=== PATIENT | female | born 1985 | race Caucasian/White ===

== ENCOUNTER 2016-11-25 16:13 | Emergency (ER) | payer OTHER ==
[~2016-11-25] VITALS: Ht 162.6 cm; Wt 108.0 kg
[~2016-11-25 16:13] MED LIST: ACET-1311 PO; IBUP1CAP9 PO
[2016-11-25 16:21] VITALS: TEMP 37.2; Ht 162.6 cm; Wt 108.0 kg
[2016-11-25] MEDS ORDERED: ONDANSETRON INJ 2 MG/ML 2 ML VIAL IV STA (16:36)
[2016-11-25] MEDS ORDERED: SODIUM CHLORIDE 0.9% 1000ML 1,000 ML IV STA (16:36)
--- NOTE | 2016-11-25 16:57 | DIAGNOSTIC IMAGING REPORT ---
CHEST ONE VIEW PORTABLE CLINICAL HISTORY: Abdominal pain. COMPARISON STUDY: Chest radiograph May 20, 2013. FINDINGS: Kyphotic positioning is noted on this exam. Lung volumes are at the lower limits of normal. No consolidation is identified. There is no pneumothorax or pleural effusion. An atrial septal defect occluder is better depicted on prior exam due to differences in technique. IMPRESSION: No acute cardiopulmonary findings. Electronically signed by: Roland Roberts M.D. 11/25/2016 4:56 PM Dictated Date/Time: 11/25/2016 4:55 PM
[2016-11-25 17:06] LABS: BASO % 0.3 %; BASO ABS # 0.03 K/uL (0-0.2); COMPLETE YES; EOS % 3.2 %; IG% 0.3 %; LYMPH ABS # 2.71 K/uL (1.2-3.4); MEAN CELL VOLUME 90.1 fL (80-100); MEAN CORPUSCULAR HEMOGLOBIN 31.1 pg (25-34); MEAN CORPUSCULAR HGB CONC 34.5 g/dl (32-36); MEAN PLATELET VOLUME 9.7 fL (7.4-10.4); MONO % 8.6 %; NEUT % 56.6 %; PLATELET COUNT 223 K/uL (130-400); RED BLOOD COUNT 4.66 M/uL (4.2-5.4); WHITE BLOOD COUNT 8.75 K/uL (4.8-10.8)
[2016-11-25 17:15] LABS: URINE APPEARANCE CLEAR (CLEAR); URINE BILIRUBIN NEG (NEG); URINE COLOR YELLOW; URINE EPITHELIAL CELL AUTO >30 /lpf (0-5); URINE NITRITE NEG (NEG); UROBILINOGEN NEG (NEG); ZZUR CULT IF INDIC CLEAN CATCH NO
[2016-11-25 17:18] LABS: MANUAL MICROSCOPIC REQUIRED? NO; REVIEW REQ? NO
[2016-11-25 17:19] LABS: INR 0.9 (0.9-1.1); PROTHROMBIN TIME (PATIENT) 9.5 SECONDS (9.0-12.0)
[2016-11-25 17:26] LABS: ALKALINE PHOSPHATASE 39 U/L (45-117); ALT/SGPT 19 U/L (12-78); BLOOD UREA NITROGEN 9 mg/dl (7-18); CALCIUM 8.4 mg/dl (8.5-10.1); CARBON DIOXIDE 26 mmol/L (21-32); CHLORIDE 111 mmol/L (98-107); GLUCOSE 117 mg/dl (70-99)
--- NOTE | 2016-11-25 17:26 | DIAGNOSTIC IMAGING REPORT ---
CT OF THE ABDOMEN AND PELVIS WITHOUT CONTRAST, STONE PROTOCOL CLINICAL HISTORY: Right upper quadrant abdominal pain. COMPARISON STUDY: CT of the abdomen and pelvis April 08, 2010. TECHNIQUE: Helical axial images of the abdomen and pelvis were obtained without IV or oral contrast according to renal stone protocol. FINDINGS: Mild mosaic attenuation is noted within visualized portions of the lower lungs. An atrial septal defect occluder is noted. No pneumatosis, free air or portal venous gas is present. There is no biliary ductal dilatation status post cholecystectomy. No renal, ureteral or bladder calculi are present. Evaluation of the remainder of the abdomen and pelvis is suboptimal on this unenhanced exam. Unenhanced images of the liver, spleen, adrenal glands and pancreas are normal. There is a small fat-containing umbilical hernia. The ovaries are not enlarged. There is no ascites or lymphadenopathy. No significant skeletal abnormalities are present. IMPRESSION: 1. No urinary calculi or hydronephrosis. 2. No evidence of acute appendicitis. 3. No acute process within the abdomen or pelvis on unenhanced study. Electronically signed by: Roland Roberts M.D. 11/25/2016 5:25 PM Dictated Date/Time: 11/25/2016 5:19 PM
[2016-11-25 17:36] LABS: AST/SGOT 13 U/L (15-37); BUN/CREATININE RATIO 11.3 (10-20); POTASSIUM 3.9 mmol/L (3.5-5.1); SODIUM 144 mmol/L (136-145)
[2016-11-25 18:02] VITALS: BP 150/89; PULSE 78; O2SAT 97
--- NOTE | 2016-11-25 18:05 | EMERGENCY ROOM VISIT NOTE ---
History Report prepared by Petrona: Raine Ruiz Under the Supervision of: Dr. Og Montana D.O. First contact with patient: 16:17 Chief Complaint: ABDOMINAL PAIN Stated Complaint: LOWER ABD PAIN History of Present Illness The patient is a 31 year old female who presents to the Emergency Room with complaints of constant RUQ abdominal pain for the past 36 hours. The patient states that she has had 5 episodes of similar pain over the past month. Typically her pain lasts for anywhere from 12 hours to 2 days. She describes her pain as dull and achy with occasional sharp pains. She rates her pain as a 5 /10 in severity. She reports nausea when her pain is sharp. The patient denies constipation, diarrhea, vomiting, fever, back pain, and urinary symptoms. Food does not exacerbate her pain; although movement does. Patient has a history of a cholecystectomy. Her LNMP was 2 weeks ago. She has never been evaluated for these symptoms in the past. Source of History: patient Onset: 36 hours ago Position: abdomen (RUQ) Symptom Intensity: 5/10 Quality: ache, sharp, dull Timing: constant Modifying Factors (Worsening): movement Associated Symptoms: + nausea, No back pain, No diarrhea, No fevers, No urinary symptoms, No vomiting Note: Pt also denies constipation. Review of Systems See HPI for pertinent positives & negatives. A total of 10 systems reviewed and were otherwise negative. Past Medical & Surgical Medical Problems: (1) Asthma, Unspecified Surgical Problems: (1) H/O tubal ligation (2) H/O wisdom tooth extraction (3) History of atrial septal defect repair (4) History of cholecystectomy Family History Heart disease Hypertension Kidney disease Kidney stones Social History Smoking Status: Never Smoker Alcohol Use: none Drug Use: none Housing Status: lives with family Occupation Status: employed Current/Historical Medications Scheduled PRN Albuterol Sulfate (Proair Respiclick), 2 PUFFS INH Q4 PRN for SOB/Wheezing Allergies Coded Allergies: Penicillins (Verified Allergy, Unknown, AMOXIL, 11/25/16) Uncoded Allergies: ENVIRONMENTAL (Allergy, Intermediate, ., 05/19/16) Physical Exam Vital Signs Date Time Temp Pulse Resp B/P Pulse Ox O2 Delivery O2 Flow Rate FiO2 11/25/16 18:02 78 16 150/89 97 Room Air 11/25/16 16:21 37.2 89 20 145/79 96 Room Air Physical Exam CONSTITUTIONAL/VITAL SIGNS: Reviewed / noted above. GENERAL: Non-toxic in appearance. INTEGUMENTARY: Warm, dry, and [place]. HEAD: Normocephalic. EYES: without scleral icterus or trauma. ENT/OROPHARYNX: clear and moist. LYMPHADENOPATHY/NECK: Is supple without lymphadenopathy or meningismus. RESPIRATORY: Lungs clear and equal. CARDIOVASCULAR: Regular rate and rhythm. GI/ABDOMEN: Soft and tender in RUQ. No organomegaly or pulsatile mass. No rebound or guarding. Normal bowel sounds. EXTREMITIES: Warm and well perfused. BACK: No CVA tenderness. NEUROLOGICAL: Intact without focal deficits. PSYCHIATRIC: normal affect. MUSCULOSKELETAL: Normally developed with good muscle tone. Medical Decision & Procedures ER Provider Diagnostic Interpretation: Radiology results as stated below per my review and radiologist interpretation: CT OF THE ABDOMEN AND PELVIS WITHOUT CONTRAST, STONE PROTOCOL CLINICAL HISTORY: Right upper quadrant abdominal pain. COMPARISON STUDY: CT of the abdomen and pelvis April 08, 2010. TECHNIQUE: Helical axial images of the abdomen and pelvis were obtained without IV or oral contrast according to renal stone protocol. FINDINGS: Mild mosaic attenuation is noted within visualized portions of the lower lungs. An atrial septal defect occluder is noted. No pneumatosis, free air or portal venous gas is present. There is no biliary ductal dilatation status post cholecystectomy. No renal, ureteral or bladder calculi are present. Evaluation of the remainder of the abdomen and pelvis is suboptimal on this unenhanced exam. Unenhanced images of the liver, spleen, adrenal glands and pancreas are normal. There is a small fat-containing umbilical hernia. The ovaries are not enlarged. There is no ascites or lymphadenopathy. No significant skeletal abnormalities are present. IMPRESSION: 1. No urinary calculi or hydronephrosis. 2. No evidence of acute appendicitis. 3. No acute process within the abdomen or pelvis on unenhanced study. Electronically signed by: Roland Roberts M.D. 11/25/2016 5:25 PM Dictated Date/Time: 11/25/2016 5:19 PM CHEST ONE VIEW PORTABLE CLINICAL HISTORY: Abdominal pain. COMPARISON STUDY: Chest radiograph May 20, 2013. FINDINGS: Kyphotic positioning is noted on this exam. Lung volumes are at the lower limits of normal. No consolidation is identified. There is no pneumothorax or pleural effusion. An atrial septal defect occluder is better depicted on prior exam due to differences in technique. IMPRESSION: No acute cardiopulmonary findings. Electronically signed by: Roland Roberts M.D. 11/25/2016 4:56 PM Dictated Date/Time: 11/25/2016 4:55 PM Laboratory Results 11/25/16 16:55 Red Blood Count 4.66, Mean Corpuscular Volume 90.1, Mean Corpuscular Hemoglobin 31.1, Mean Corpuscular Hemoglobin Concent 34.5, Mean Platelet Volume 9.7, Neutrophils (%) (Auto) 56.6, Lymphocytes (%) (Auto) 31.0, Monocytes (%) (Auto) 8.6, Eosinophils (%) (Auto) 3.2, Basophils (%) (Auto) 0.3, Neutrophils # (Auto) 4.95, Lymphocytes # (Auto) 2.71, Monocytes # (Auto) 0.75, Eosinophils # (Auto) 0.28, Basophils # (Auto) 0.03 11/25/16 16:55 Test 11/25/16 16:55 11/25/16 17:00 White Blood Count 8.75 K/uL (4.8-10.8) Red Blood Count 4.66 M/uL (4.2-5.4) Hemoglobin 14.5 g/dL (12.0-16.0) Hematocrit 42.0 % (37-47) Mean Corpuscular Volume 90.1 fL (80-100) Mean Corpuscular Hemoglobin 31.1 pg (25-34) Mean Corpuscular Hemoglobin Concent 34.5 g/dl (32-36) Platelet Count 223 K/uL (130-400) Mean Platelet Volume 9.7 fL (7.4-10.4) Neutrophils (%) (Auto) 56.6 % Lymphocytes (%) (Auto) 31.0 % Monocytes (%) (Auto) 8.6 % Eosinophils (%) (Auto) 3.2 % Basophils (%) (Auto) 0.3 % Neutrophils # (Auto) 4.95 K/uL (1.4-6.5) Lymphocytes # (Auto) 2.71 K/uL (1.2-3.4) Monocytes # (Auto) 0.75 K/uL (0.11-0.59) Eosinophils # (Auto) 0.28 K/uL (0-0.5) Basophils # (Auto) 0.03 K/uL (0-0.2) RDW Standard Deviation 42.2 fL (36.4-46.3) RDW Coefficient of Variation 13.0 % (11.5-14.5) Immature Granulocyte % (Auto) 0.3 % Immature Granulocyte # (Auto) 0.03 K/uL (0.00-0.02) Prothrombin Time 9.5 SECONDS (9.0-12.0) Prothromb Time International Ratio 0.9 (0.9-1.1) Activated Partial Thromboplast Time 25.0 SECONDS (21.0-31.0) Partial Thromboplastin Ratio 1.0 Anion Gap 7.0 mmol/L (3-11) Est Creatinine Clear Calc Drug Dose 123.4 ml/min Estimated GFR () 114.7 Estimated GFR (Non- 98.9 BUN/Creatinine Ratio 11.3 (10-20) Calcium Level 8.4 mg/dl (8.5-10.1) Total Bilirubin 0.1 mg/dl (0.2-1) Direct Bilirubin < 0.1 mg/dl (0-0.2) Aspartate Amino Transf (AST/SGOT) 13 U/L (15-37) Alanine Aminotransferase (ALT/SGPT) 19 U/L (12-78) Alkaline Phosphatase 39 U/L (45-117) Total Protein 6.9 gm/dl (6.4-8.2) Albumin 3.5 gm/dl (3.4-5.0) Lipase 125 U/L (73-393) Urine Color YELLOW Urine Appearance CLEAR (CLEAR) Urine pH 7.0 (4.5-7.5) Urine Specific [place] 1.020 (1.000-1.030) Urine Protein NEG (NEG) Urine Glucose (UA) NEG (NEG) Urine Ketones NEG (NEG) Urine Occult Blood NEG (NEG) Urine Nitrite NEG (NEG) Urine Bilirubin NEG (NEG) Urine Urobilinogen NEG (NEG) Urine Leukocyte Esterase TRACE (NEG) Urine WBC (Auto) 1-5 /hpf (0-5) Urine RBC (Auto) 5-10 /hpf (0-4) Urine Hyaline Casts (Auto) 1-5 /lpf (0-5) Urine Epithelial Cells (Auto) >30 /lpf (0-5) Urine Bacteria (Auto) NEG (NEG) Urine Test NEG (NEG) Laboratory results as stated above per my review. Medications Administered Medications (Trade) Dose Ordered Sig/Cammie Route Start Time Stop Time Status Last Admin Dose Admin Sodium Chloride (Nss 1000ml) 1,000 ml @ 999 mls/hr Q1H1M STAT IV 11/25/16 16:36 11/25/16 17:36 DC 11/25/16 16:36 999 MLS/HR Ondansetron HCl (Zofran Inj) 4 mg NOW STAT IV 11/25/16 16:36 11/25/16 16:38 DC 11/25/16 16:57 4 MG ED Course 1628: Previous medical records were reviewed. The patient was evaluated in room B4B. A complete history and physical examination was performed. 1636: NSS 1000 ml @ 999 mls/hr IV, Zofran 4 mg IV. 1805:I reassessed the patient at this time. She is feeling better and resting comfortably. I discussed the results and treatment plan with the patient. I answered all pertaining questions that she had. She expressed understanding and verbalized agreement. The patient will be discharged home. Medical Decision Differential considered: pancreatitis, hepatitis, AAA, UTI, pyelonephritis, kidney stones, appendicitis, diverticulitis, shingles, bowel obstruction mesenteric ischemia, intussusception,hernia, ovarian torsion, ruptured ovarian cyst,ectopic , . This is a 31-year-old female who presents to the ED with a chief complaint of right upper quadrant abdominal pain. The patient states that she has had the pain for about 36 hours. She describes as a dull achy pain with occasional sharp pains associated with it. This causes some nausea. The patient states that she has had similar pains in the past month. The initial event was the worse one and lasted for about 12-24 hours. She has had about 4 additional times that lasted for brief periods less than 24 hours. She has not had it evaluated in the past. Her last muscle. Was 2 weeks ago. She denies any changes in her bowels or bladder. Her urinary symptoms. Nothing seems to make it worse other than occasionally certain movements with sitting. She denies any association to food. She does report history of cholecystectomy and tubal ligation the past. Her vital signs are stable. Her physical exam was positive for some tenderness in the right upper quadrant. CBC is normal. Chest x-ray was negative for acute disease. test is negative. Chemistry panel was unremarkable. Lipase is negative. A CT scan of the abdomen pelvis did not show any acute process. The patient was told results per cheese felt to be stable for discharge. She was treated with IV fluids and IV Zofran. Impression Primary Impression: Right upper quadrant abdominal pain Scribe Attestation The scribe's documentation has been prepared under my direction and personally reviewed by me in its entirety. I confirm that the note above accurately reflects all work, treatment, procedures, and medical decision making performed by me. Departure Information Dispostion Home / Self-Care Referrals No Doctor, Assigned (PCP) Forms Call Back Authorization, HOME CARE DOCUMENTATION FORM, IMPORTANT VISIT INFORMATION Patient Instructions Abdominal Pain, My [facility] Additional Instructions Follow-up with your doctor for further care and evaluation in 1-2 days. Return to the emergency department for worsening or new symptoms or any concerns. You have been examined and treated today on an emergency basis only. This is not a substitute for, or an effort to provide, complete comprehensive medical care. It is impossible to recognize and treat all injuries or illnesses in a single emergency department visit. It is therefore important that you follow up closely with your doctor. Call as soon as possible for an appointment.
[2016-11-25] MEDS ORDERED: ALBU18002 INH (18:12)
== END 2016-11-25 18:16 | disposition home or self-care (01) ==
LOC: C.EDB 16:14
DX: R10.11 Right upper quadrant pain (principal); Z90.49 Acquired absence of other specified parts of digestive tract; J45.909 Unspecified asthma, uncomplicated; Z98.51 Tubal ligation status; Z82.49 Family history of ischemic heart disease and other diseases of the circulatory system

== ENCOUNTER 2017-05-14 18:37 | Emergency (ER) | payer OTHER ==
[~2017-05-14] VITALS: Ht 162.6 cm; Wt 106.3 kg
[~2017-05-14 18:37] MED LIST changes: -ACET-1311 PO; +ALBU18002 INH; -IBUP1CAP9 PO
[2017-05-14 18:42] VITALS: TEMP 37.1; Ht 162.6 cm; Wt 106.3 kg
--- NOTE | 2017-05-14 19:26 | DIAGNOSTIC IMAGING REPORT ---
RIGHT FOOT 3 VIEWS CLINICAL HISTORY: Right foot injury. FINDINGS: 3 views of the right foot are obtained. No prior studies are available for comparison at the time of dictation. The skeletal structures are well mineralized. No fracture is seen. The joint spaces of the foot are well-maintained. Mild spurring is seen along the dorsal aspect of the tarsal bones. The overlying soft tissues are within normal limits. IMPRESSION: Unremarkable radiographic assessment of the right foot. Electronically signed by: Maikol Garcia M.D. 05/14/2017 7:25 PM Dictated Date/Time: 05/14/2017 7:24 PM
[2017-05-14] MEDS ORDERED: VNTHFA/IN INH (19:28)
--- NOTE | 2017-05-14 19:42 | EMERGENCY ROOM VISIT NOTE ---
ED Visit Note First contact with patient: 18:44 CHIEF COMPLAINT: Right foot injury HISTORY of present illness: This 31-year-old female patient sustained an injury to the right foot, when she slipped on her kitchen floor approximately 6 hours ago the patient states that she inverted her foot and ankle but she does not have any pain in the ankle but is having pain on the top of her foot. No numbness or weakness. Constant pain, moderate to severe, worse with movement and weight bearing. No ankle pain. REVIEW OF SYSTEMS: 6 system review was performed and was negative unless stated otherwise in history of present illness. PMH: The patient is healthy; asthma, cholecystectomy SOCIAL HISTORY: Patient lives with her boyfriend. The patient admits to tobacco use but denies any alcohol use. PHYSICAL EXAM: Vital Signs: Were reviewed Reviewed Nurse's notes. GENERAL: 31- year-old white female appears in no acute distress. MENTAL Status: Alert, oriented and choerent, not in acute distress. RIGHT Foot: There is tenderness and swelling over the dorsum of the foot but no deformity. The range of motion limited secondary to pain. There is no deformity and the skin is intact. EMERGENCY DEPARTMENT COURSE: The patient was evaluated. X-ray of the right foot was ordered and interpreted by the radiologist and myself. DIAGNOSTICS:RIGHT FOOT 3 VIEWS CLINICAL HISTORY: Right foot injury. FINDINGS: 3 views of the right foot are obtained. No prior studies are available for comparison at the time of dictation. The skeletal structures are well mineralized. No fracture is seen. The joint spaces of the foot are well-maintained. Mild spurring is seen along the dorsal aspect of the tarsal bones. The overlying soft tissues are within normal limits. IMPRESSION: Unremarkable radiographic assessment of the right foot. Electronically signed by: Maikol Garcia M.D. 05/14/2017 7:25 PM Dictated Date/Time: 05/14/2017 7:24 PM The patient was informed of the findings. The patient was placed in a postop shoe. The patient was offered crutches but declined. The patient was discharged home in stable condition. TREATMENT: Ice and elevation for one day. Ibuprofen, 600mg every 6 hours for the pain. Wear postop shoe until pain is tolerable without it. If symptoms are not improving in 4-5 days, follow-up with your family doctor. DIAGNOSIS: Right foot sprain Problem List Surgical Problems: (1) H/O tubal ligation Status: Resolved (2) H/O wisdom tooth extraction Status: Resolved (3) History of atrial septal defect repair Status: Resolved (4) History of cholecystectomy Status: Resolved Current/Historical Medications Scheduled PRN Albuterol Hfa (Ventolin Hfa), 2 PUFFS INH Q4H PRN for SOB/Wheezing Allergies Coded Allergies: Penicillins (Verified Allergy, Unknown, AMOXIL, 11/25/16) Uncoded Allergies: ENVIRONMENTAL (Allergy, Intermediate, ., 05/19/16) Vital Signs Date Time Temp Pulse Resp B/P (MAP) Pulse Ox O2 Delivery O2 Flow Rate FiO2 05/14/17 18:42 37.1 88 16 139/85 95 Room Air Departure Information Referrals No Doctor, Assigned (PCP) Patient Instructions [facility]
[2017-05-14 19:47] VITALS: BP 124/78; PULSE 56; O2SAT 98
== END 2017-05-14 19:49 | disposition home or self-care (01) ==
LOC: C.EDB 18:38 → C.EDD 19:49
DX: S93.601A Unspecified sprain of right foot, initial encounter (principal); W01.0XXA Fall on same level from slipping, tripping and stumbling without subsequent striking against object, initial encounter; J45.909 Unspecified asthma, uncomplicated; Z90.49 Acquired absence of other specified parts of digestive tract; Z98.51 Tubal ligation status; Z88.0 Allergy status to penicillin

== ENCOUNTER 2017-08-30 17:05 | Emergency (ER) | payer OTHER ==
[~2017-08-30] VITALS: Ht 162.6 cm; Wt 111.3 kg
[~2017-08-30 17:05] MED LIST changes: -ALBU18002 INH; +VNTHFA/IN INH
[2017-08-30 17:31] VITALS: Ht 162.6 cm; Wt 111.3 kg
--- NOTE | 2017-08-30 17:38 | EMERGENCY ROOM VISIT NOTE ---
History First contact with patient: 17:33 Chief Complaint: FALL Stated Complaint: POSSIBLE BROKEN LEFT TIBIA History of Present Illness The patient is a 32 year old female who presents to the Emergency Room via private vehicle accompanied by male with complaints of "possible broken left tibia". The patient states that yesterday around 5 PM she was walking and tripped over the baby gate in her house and fell forward striking a coffee table against her left tibia. She notes pain in this region since that time. She is concerned it may be broken. She rates her pain overall is a 5/10. She denies chance of . Review of Systems A complete 6-point Review of Systems was discussed with the patient, with pertinent positives and negatives listed in the History of Present Illness. All remaining Review of Systems questions can be considered negative unless otherwise specified. Past Medical/Surgical History Medical Problems: (1) Asthma, Unspecified Surgical Problems: (1) H/O tubal ligation (2) H/O wisdom tooth extraction (3) History of atrial septal defect repair (4) History of cholecystectomy Family History Heart disease Hypertension Kidney disease Kidney stones Social History Smoking Status: Current Every Day Smoker Alcohol Use: none Drug Use: none Housing Status: lives with family Occupation Status: employed Current/Historical Medications Scheduled PRN Albuterol Hfa (Ventolin Hfa), 2 PUFFS INH Q4H PRN for SOB/Wheezing Physical Exam Vital Signs Date Time Temp Pulse Resp B/P (MAP) Pulse Ox O2 Delivery O2 Flow Rate FiO2 08/30/17 18:23 36.6 88 16 132/88 96 08/30/17 18:11 37.0 78 16 130/81 97 Room Air 08/30/17 17:31 37.0 82 16 129/83 97 Room Air Physical Exam VITAL SIGNS - Vital signs and nursing notes were reviewed. Stable. GENERAL -32-year-old female appearing her stated age who is in no acute distress. Communicates well with provider and answers questions appropriately. SKIN - Without rashes. No petechial rashes. There is a soft tissue contusion overlying the left anterior turpin. EXTREMITIES - No clubbing or peripheral cyanosis. No pretibial edema present. Tenderness of the left anterior turpin. No palpable step-off. She is neurovascularly intact in this region. No evidence of performing syndrome. Medical Decision & Procedures ER Provider Diagnostic Interpretation: L TIBIA/FIBULA 2 VIEWS ROUTINE CLINICAL HISTORY: Distal turpin pain status post trauma COMPARISON: None. DISCUSSION: No acute fractures or dislocations are visualized. There are few scattered phleboliths within the anterior soft tissues. There is a small distal fibular osteochondroma IMPRESSION: 1. No acute fractures 2. Small distal fibular osteochondroma Electronically signed by: Deonte Davey M.D. 08/30/2017 5:49 PM Dictated Date/Time: 08/30/2017 5:48 PM Medical Decision Patient was seen and evaluated as above. She presents to us today status post fall with left anterior turpin pain. X-ray was obtained with results as above. No acute fracture. She was educated however upon the incidental osteochondroma. She is to follow-up with orthopedics if her pain persists, as well as for the osteochondroma. She was educated upon management, educated upon worrisome symptoms which to return, had questions answered prior to discharge, and was discharged home in good condition. In the evaluation and treatment of this patient, the following differential diagnoses were considered: Ankle Fracture, Ankle Sprain, Distal Fibula Fracture , Distal Tibia Fracture, Foot Fracture, [place] Fracture. Impression Primary Impression: Fall Additional Impression: Pain in left turpin Departure Information Dispostion Home / Self-Care Condition GOOD Referrals No Doctor, Assigned (PCP) Ramiro Tracy M.D. Patient Instructions My [facility] Additional Instructions You have been treated in the Emergency Department for a left turpin pain. For pain control, you can use the following [id number]-hldvsih medicines (if >12 yo): - Regular strength (325mg/tab) Tylenol (acetaminophen) 2 tabs every 4-6 hours as needed. Do not exceed 12 tablets in a 24 hour period. Avoid taking more than 3 grams (3000 mg) of Tylenol per day. This includes any other sources of acetaminophen you may take on a regular basis. - Regular strength (200 mg/tab) Advil (ibuprofen) 1-2 tabs every 4-6 hours as needed. Do not exceed a dose of 3200 mg per day. If this is a recent injury (<24 hrs), ice can be applied to the area of pain for the first 3 days to help decrease pain and inflammation. You have been provided the number for an Orthopaedic Surgeon. You should call this number as soon as possible to establish a follow-up visit from today's Emergency Department visit. Keep the wrap in place until cleared by Orthopedics if pain persists. Return to the Emergency Department if your current symptoms worsen despite treatment course outlined above, or if you develop any of the following symptoms : intractable pain despite aforementioned treatment course or new onset of numbness or tingling of the foot. L TIBIA/FIBULA 2 VIEWS ROUTINE CLINICAL HISTORY: Distal turpin pain status post trauma COMPARISON: None. DISCUSSION: No acute fractures or dislocations are visualized. There are few scattered phleboliths within the anterior soft tissues. There is a small distal fibular osteochondroma IMPRESSION: 1. No acute fractures 2. Small distal fibular osteochondroma Electronically signed by: Deonte Davey M.D. 08/30/2017 5:49 PM Dictated Date/Time: 08/30/2017 5:48 PM Problem Qualifiers
--- NOTE | 2017-08-30 17:51 | DIAGNOSTIC IMAGING REPORT ---
L TIBIA/FIBULA 2 VIEWS ROUTINE CLINICAL HISTORY: Distal turpin pain status post trauma COMPARISON: None. DISCUSSION: No acute fractures or dislocations are visualized. There are few scattered phleboliths within the anterior soft tissues. There is a small distal fibular osteochondroma IMPRESSION: 1. No acute fractures 2. Small distal fibular osteochondroma Electronically signed by: Deonte Davey M.D. 08/30/2017 5:49 PM Dictated Date/Time: 08/30/2017 5:48 PM
[2017-08-30 18:23] VITALS: BP 132/88; PULSE 88; TEMP 36.6; O2SAT 96
== END 2017-08-30 18:24 | disposition home or self-care (01) ==
LOC: C.EDB 17:06 → C.EDD 18:24
DX: M79.662 Pain in left lower leg (principal); D16.22 Benign neoplasm of long bones of left lower limb; J45.909 Unspecified asthma, uncomplicated; F17.200 Nicotine dependence, unspecified, uncomplicated; Z98.51 Tubal ligation status; Z90.49 Acquired absence of other specified parts of digestive tract; Z82.49 Family history of ischemic heart disease and other diseases of the circulatory system; Z84.1 Family history of disorders of kidney and ureter

== ENCOUNTER 2018-01-16 19:16 | Emergency (ER) | payer OTHER ==
[~2018-01-16] VITALS: Ht 162.6 cm; Wt 115.9 kg
[2018-01-16 19:29] VITALS: TEMP 36.8; Ht 162.6 cm; Wt 115.9 kg
[2018-01-16] MEDS ORDERED: MULT-506 PO (19:43)
[2018-01-16] MEDS ORDERED: IBUP-1428 PO (19:43)
[2018-01-16] MEDS ORDERED: SODIUM CHLORIDE 0.9% 1000ML 1,000 ML IV STA (19:59)
[2018-01-16] MEDS ORDERED: ONDANSETRON INJ 2 MG/ML 2 ML VIAL IV STA (19:59)
[2018-01-16] MEDS ORDERED: MoRPHine SULFATE 4 MG/ML 1 ML CARP\\VIAL IV PRN (20:00)
[2018-01-16 20:16] LABS: BASO % 0.4 %; BASO ABS # 0.04 K/uL (0-0.2); EOS % 2.3 %; EOS ABS # 0.24 K/uL (0-0.5); HEMATOCRIT 41.7 % (37-47); HEMOGLOBIN 14.2 g/dL (12.0-16.0); IG# 0.02 K/uL (0.00-0.02); LYMPH % 36.5 %; LYMPH ABS # 3.85 K/uL (1.2-3.4); MEAN CELL VOLUME 91.6 fL (80-100); MEAN CORPUSCULAR HEMOGLOBIN 31.2 pg (25-34); MEAN CORPUSCULAR HGB CONC 34.1 g/dl (32-36); MEAN PLATELET VOLUME 9.8 fL (7.4-10.4); MONO % 7.1 %; MONO ABS # 0.75 K/uL (0.11-0.59); NEUT % 53.5 %; NEUT ABS # 5.64 K/uL (1.4-6.5); PLATELET COUNT 249 K/uL (130-400); RED CELL DISTRIBUTION WIDTH CV 12.9 % (11.5-14.5); RED CELL DISTRIBUTION WIDTH SD 43.2 fL (36.4-46.3); WHITE BLOOD COUNT 10.54 K/uL (4.8-10.8)
[2018-01-16 20:29] LABS: PTT PATIENT 23.7 SECONDS (21.0-31.0)
[2018-01-16 20:37] LABS: ALBUMIN 3.6 gm/dl (3.4-5.0); ALKALINE PHOSPHATASE 37 U/L (45-117); ALT/SGPT 17 U/L (12-78); AST/SGOT 16 U/L (15-37); BLOOD UREA NITROGEN 12 mg/dl (7-18); CALCIUM 8.6 mg/dl (8.5-10.1); CARBON DIOXIDE 25 mmol/L (21-32); CREATININE 0.81 mg/dl (0.60-1.20); GLUCOSE 92 mg/dl (70-99); LIPASE 111 U/L (73-393); SODIUM 138 mmol/L (136-145)
[2018-01-16] MEDS ORDERED: OPTIRAY 320 IV PRN (21:00)
--- NOTE | 2018-01-16 21:10 | DIAGNOSTIC IMAGING REPORT ---
CT SCAN OF THE ABDOMEN AND PELVIS WITH IV CONTRAST CLINICAL HISTORY: Trauma. Fall yesterday. COMPARISON STUDY: Abdominal CT dated 11/25/2016. TECHNIQUE: Following the IV administration of 115 cc of Optiray 320, CT scan of the abdomen and pelvis is performed from the lung bases to the proximal femora. Images are reviewed in the axial, sagittal, and coronal planes. IV contrast was administered without complication. A dose lowering technique was utilized adhering to the principles of ALARA. CT DOSE: 1289.68 mGy.cm FINDINGS: Lung bases: The heart is normal in size and without pericardial effusion. An atrial septal closure device is noted. Mild air trapping is noted at the lung bases. No airspace consolidation or pleural effusion is seen. Liver: The contrast-enhanced liver is enlarged, measuring 22.5 cm in length. The liver is otherwise normal in contour and attenuation. There is mild central intrahepatic biliary ductal dilatation. The hepatic veins and portal veins are patent. Gallbladder: Surgically absent noting clips in the gallbladder fossa. Spleen: Normal in size and attenuation. Pancreas: Unremarkable. Adrenal glands: Unremarkable. Kidneys: The contrast enhanced kidneys are normal in size and without hydronephrosis. The kidneys enhance symmetrically. Abdominal vasculature: The abdominal aorta is normal in course and caliber. Bowel: There are scattered colonic diverticula without CT evidence of acute diverticulitis. No bowel obstruction is seen. The appendix is well-visualized and normal. Peritoneum: There is no intraperitoneal free air or abdominal ascites. There is a fat-containing umbilical hernia. Lymphadenopathy: None. Pelvic viscera: The bladder, uterus, and adnexa are normal as visualized. Bilateral ovarian follicles are noted. Skeletal structures: No lytic or blastic lesions are seen. Mild sclerotic change is noted in the sacroiliac joints. Soft tissues: Subcutaneous soft tissue contusion is noted within the ventral abdominal wall. IMPRESSION: 1. There is no evidence of solid injury in the abdomen or pelvis. 2. Subcutaneous soft tissue contusion is noted within the ventral abdominal wall. 3. No acute infectious or inflammatory findings are identified in the abdomen or pelvis. 4. Hepatomegaly. Electronically signed by: Maikol Garcia M.D. 01/16/2018 9:09 PM Dictated Date/Time: 01/16/2018 9:03 PM
[2018-01-16 21:21] VITALS: BP 148/93; PULSE 89; O2SAT 97
--- NOTE | 2018-01-16 22:53 | EMERGENCY ROOM VISIT NOTE ---
ED Visit Note First contact with patient: 19:41 Chief Complaint: I hurt my stomach. History of Present Illness: Ms. Ayers is a 32year-old white female who ambulates into the ED accompanied by a male friend complaining of mid abdominal pain. Historically patient reports status post cholecystectomy and tubal ligation. Patient reports a yesterday she was stepping over a child's gait and her dog accidentally tripped her. She reports she fell forward onto the top of a wooden chair and injured her abdomen. She reports since that time she has been having increasing pain over the abdomen just superior to the umbilicus bilaterally. She reports it slightly more pronounced on the right than the left. She describes her pain as a sharp sensation. She rates her discomfort 8/ 10. Her pain is nonradiating. Her pain worsens with palpation of her abdomen in the area of her pain and flexion and extension of the abdomen. She has not identified any alleviating factors related to the pain. She is attempted to use some [id number] medications without relief of her discomfort. She denies any associated symptoms with her pain. Patient denies fevers, chills, sweats, skin eruptions, skin color changes, upper respiratory tract symptoms, shortness of breath, chest pain, nausea, vomiting, diarrhea, constipation, rectal bleeding, black/tarry stools, urinary symptoms, hematuria, vaginal bleeding, vaginal discharge, back/flank pain. Review of Systems: As noted above in history of present illness. All body systems were reviewed and found to be negative as noted above. Past Medical History: As previously noted and asthma. Current Medications: Albuterol, Motrin. Allergies to Medications: Penicillin. Social History: Patient is not currently employed; she feels safe in her home environment; she admits to tobacco and alcohol use. Physical Examination: Vital Signs: Date Time Temp Pulse Resp B/P (MAP) Pulse Ox O2 Delivery O2 Flow Rate FiO2 01/16/18 21:21 89 20 148/93 97 01/16/18 19:29 36.8 73 19 167/86 95 Room Air GENERAL: 32-year-old female in mild to moderate distress due to pain, nontoxic- appearing, afebrile and hemodynamically stable. NEUROLOGICAL: Awake, alert and oriented to person, place and time. Answering questions appropriately and following commands. Normal gait. Good hand eye coordination. SKIN: Warm, dry and pink. Abdomen: Just superior to the umbilicus patient has a line into both quadrants that is ecchymotic and consistent with a contusion. There are no open wounds. HEENT: Atraumatic and normocephalic. PERRLA. Sclera white and conjunctiva pink. Oral cavity moist and pink. Pharynx is nonerythematous or edematous. Speech normal. No lymphadenopathy. Trachea midline. No jugular venous distention. BACK: No tenderness over the bony spine. No CVA tenderness. THORAX: Lungs sounds are clear to auscultation and equal bilaterally with symmetrical chest wall. No wheezing, rales or rhonchi. No crepitus, tenderness , subcutaneous air or deformities noted. HEART: Regular rate and rhythm. No gallops, rubs or murmurs are appreciated. ABDOMEN: Obese and soft with moderate tenderness in the area of her contusions across the abdomen. Positive bowel sounds in all quadrants. No guarding, rigidity or organomegaly. EXTREMITIES: Moves all extremities well on command and with purpose. All distal neurovascular statuses are intact and equal bilaterally. ED Course: Patient is assessed as noted above. Patient's medication list was reviewed. Laboratory Testing: Test 01/16/18 20:00 Range/Units White Blood Count 10.54 4.8-10.8 K/uL Red Blood Count 4.55 4.2-5.4 M/uL Hemoglobin 14.2 12.0-16.0 g/dL Hematocrit 41.7 37-47 % Mean Corpuscular Volume 91.6 80-100 fL Mean Corpuscular Hemoglobin 31.2 25-34 pg Mean Corpuscular Hemoglobin Concent 34.1 32-36 g/dl Platelet Count 249 130-400 K/uL Mean Platelet Volume 9.8 7.4-10.4 fL Neutrophils (%) (Auto) 53.5 % Lymphocytes (%) (Auto) 36.5 % Monocytes (%) (Auto) 7.1 % Eosinophils (%) (Auto) 2.3 % Basophils (%) (Auto) 0.4 % Neutrophils # (Auto) 5.64 1.4-6.5 K/uL Lymphocytes # (Auto) 3.85 1.2-3.4 K/uL Monocytes # (Auto) 0.75 0.11-0.59 K/uL Eosinophils # (Auto) 0.24 0-0.5 K/uL Basophils # (Auto) 0.04 0-0.2 K/uL RDW Standard Deviation 43.2 36.4-46.3 fL RDW Coefficient of Variation 12.9 11.5-14.5 % Immature Granulocyte % (Auto) 0.2 % Immature Granulocyte # (Auto) 0.02 0.00-0.02 K/uL Prothrombin Time 10.2 9.0-12.0 SECONDS Prothromb Time International Ratio 1.0 0.9-1.1 Activated Partial Thromboplast Time 23.7 21.0-31.0 SECONDS Partial Thromboplastin Ratio 0.9 Urine Color YELLOW Urine Appearance CLEAR CLEAR Urine pH 6.5 4.5-7.5 Urine Specific Nye 1.015 1.000-1.030 Urine Protein NEG NEG Urine Glucose (UA) NEG NEG Urine Ketones NEG NEG Urine Occult Blood NEG NEG Urine Nitrite NEG NEG Urine Bilirubin NEG NEG Urine Urobilinogen NEG NEG Urine Leukocyte Esterase NEG NEG Sodium Level 138 136-145 mmol/L Potassium Level 4.0 3.5-5.1 mmol/L Chloride Level 107 98-107 mmol/L Carbon Dioxide Level 25 21-32 mmol/L Anion Gap 6.0 3-11 mmol/L Blood Urea Nitrogen 12 7-18 mg/dl Creatinine 0.81 0.60-1.20 mg/dl Est Creatinine Clear Calc Drug Dose 125.8 ml/min Estimated GFR () 112.2 Estimated GFR (Non- 96.8 BUN/Creatinine Ratio 14.5 10-20 Random Glucose 92 70-99 mg/dl Calcium Level 8.6 8.5-10.1 mg/dl Total Bilirubin 0.2 0.2-1 mg/dl Direct Bilirubin < 0.1 0-0.2 mg/dl Aspartate Amino Transf (AST/SGOT) 16 15-37 U/L Alanine Aminotransferase (ALT/SGPT) 17 12-78 U/L Alkaline Phosphatase 37 45-117 U/L Total Protein 7.0 6.4-8.2 gm/dl Albumin 3.6 3.4-5.0 gm/dl Lipase 111 73-393 U/L IV Contrast Abdominal/Pelvic CT: Was reviewed by myself and read by the radiologist showing no evidence of solid injury to the abdomen or pelvis, subcutaneous soft tissue contusion over the ventral abdominal wall, no acute infectious/inflammatory findings within the abdomen or pelvis and hepatomegaly. Patient was hydrated with normal saline and she received 4 mg of morphine IV and 4 mg of Zofran IV. Patient was reassessed multiple times during her stay in the emergency department. Patient's case was reviewed with Dr. Sánchez; we agreed on diagnostic approach , treatment, disposition and plan. Patient was educated about today's findings and instructed on her treatment plan ; she verbalized understanding and agreement with this plan. Clinical Impression: Abdominal wall contusion. Decision-Making: Initially my differential diagnosis I considered contusion, solid organ injury, perforated viscus, and other causes. Disposition: Patient discharged home in stable condition accompanied by her boyfriend; try to departure she was reassessed and subjectively reported she was feeling much better and rated her discomfort 4/10. Plan: Comfort measures were discussed with the patient including alternating ibuprofen and acetaminophen every 3 hours, ice and proper lifting and moving techniques. Patient was encouraged to follow-up with her PCP for recheck in 3-4 days. Patient was encouraged return to the ED for worsening pain, fevers, vomiting or any new/concerning symptoms.
== END 2018-01-16 21:25 | disposition home or self-care (01) ==
LOC: C.EDB 19:17 → C.EDD 21:25
DX: S30.1XXA Contusion of abdominal wall, initial encounter (principal); W01.198A Fall on same level from slipping, tripping and stumbling with subsequent striking against other object, initial encounter; J45.909 Unspecified asthma, uncomplicated; Z72.0 Tobacco use; Z90.49 Acquired absence of other specified parts of digestive tract; Z88.0 Allergy status to penicillin

== ENCOUNTER 2024-09-28 15:58 | Observation (INO) ==
--- OUTSIDE RECORDS SUMMARY | 2024-09-28 16:01 | External Medical Summary | Continuity of Care Document ---
Author Name Unknown Organization [facility] [address], [place] [id number] Encounter [facility] [id number] Date(s): 09/12/24 - 09/12/24 [facility] [address] [facility] [address] [place], [place] [phone] Encounter Diagnosis Dizziness and giddiness(Final) - Headache with orthostatic component, not elsewhere classified(Final) - Vitamin D deficiency, unspecified(Final) - Deficiency of other specified B group vitamins(Final) - Iron deficiency(Final) - Discharge Disposition: Home or Self Care Attending Physician: YURIY Lara Rachael E. Referring Physician: YURIY Lara Rachael E. Allergies, Adverse Reactions, Alerts Substance Criticality Severity Reaction Reaction Severity Status penicillin Active oxycodone Nausea and vomit Act alexandr Immunizations Given and Recorded Vaccine Date Status Refusal Reason tetanus/diphtheria/pertuss, acel (Tdap) 06/10/24 G iven influenza virus vaccine, inactivated 06/10/24 Give n influenza virus vaccine, inactivated 09/22/19 Give n SARS-CoV-2 (COVID-19) mRNA BNT-162b2 vax 09/08/21 Recorded SARS-CoV-2 (COVID-19) mRNA BNT-162b2 vax 04/22/21 Recorded pneumococcal 23-valent vaccine 10/05/11 Given tetanus toxoids-diphtheria, Td (Adult) 03/06/01 Re corded poliovirus vaccine, live, trivalent 01/21/92 Recor ded poliovirus vaccine, live, trivalent 03/22/87 Recor ded poliovirus vaccine, live, trivalent 86 Recor ded measles/mumps/rubella virus vaccine 01/21/92 Recor ded measles/mumps/rubella virus vaccine 02/22/88 Recor ded diphtheria/pertussis, whole cell/tetanus 01/21/92 Recorded diphtheria/pertussis, whole cell/tetanus 07/19/87 Recorded diphtheria/pertussis, whole cell/tetanus 03/22/87 Recorded diphtheria/pertussis, whole cell/tetanus 86 Recorded Medications albuterol CFC free 90 mcg/inh MDI Start: 05/08/24 11:50:00 AM EDT, 2 puff, inhaled, qid, Disp# 8 g, PRN: as needed for wheezing, Pharmacy: [facility]/pharmacy #[id number] Start Date: 05/08/24 Status: Ordered aspirin 81 mg oral tablet Start: 05/27/19 11:30:00 AM EDT, 1 tab, PO, Daily Start Date: 05/27/19 Status: Ordered Atarax 10 mg oral tablet Start: 07/15/24 1:27:00 PM EST, 1 tab, PO, tid, Disp# 30 tab, PRN: as needed for anxiety, Pharmacy:[facility]/pharmacy #[id number] Start Date: 07/15/24 Stop Date: 07/25/24 Status: Ordered busPIRone 7.5 mg oral tablet Start: 08/11/24 7:51:00 AM EST, 1 tab, PO, bid, Disp# 60 tab, Refills: 1, Pharmacy: [id number] Start Date: 08/11/24 Stop Date: 09/10/24 Status: Ordered magnesium oxide 400 mg (241.3 mg elemental magnesium) oral tablet Start: 07/10/24 10:27:00 AM EST, 1 tab, PO, Daily Start Date: 07/10/24 Status: Ordered multivitamin Start: 08/24/20 10:29:00 AM EST, 1 tab, PO, Daily Start Date: 08/24/20 Status: Ordered Symbicort 160 mcg-4.5 mcg/inh inhalation aerosol Start: 05/08/24 11:49:00 AM EDT, 2 puff, inhaled, bid, Disp# 6 g, Pharmacy: [facility]/pharmacy #[id number] Start Date: 05/08/24 Status: Ordered Vitamin B12 500 mcg oral tablet Start: 06/17/19 3:06:00 PM EDT, 1 tab, PO, Daily Start Date: 06/17/19 Status: Ordered Problem List Condition Confirmation Course Effective Dates Status Health St atus Informant Ankle pain Confirmed Active Anxiety Confirmed Active ASTHMA Confirmed Active Atrial septal defect Confirmed Active Chronic vertigo Confirmed Active DEPRESSION Confirmed Active Family history of diabetes mellitus Confirmed Active GERD Confirmed Active Bad headache Confirmed Active Elevated liver enzymes Confirmed Active MORBID OBESITY Confirmed Active Tobacco user Confirmed Active Weight disorder Confirmed Active Procedures Procedure Date Related Diagnosis Body Site Status Ultrasound scan of upper arm 1 01/18/[address] of abdomen and pelvis wit h contrast 2 03/03/20 Completed Ultrasound scan of pelvis 3 03/03/20 Completed Emergency department patient visit 4 05/19/16 Completed Ultrasound right ankle nonvascular 5 05/19/16 Completed X-ray of right ankle 6 05/19/16 Co mpleted atrial septal defect repair - at age 4 Completed cholecystectomy Completed tubal ligation Completed [address] [place] [address] Impression: 1. No evidence of DVT in the left upper extremity 2. Subcutaneous edema with a 4 mm crescentic likely calcified lesion in the subcutaneous fat. No evidence of abscess or drainable fluid collection [address] [place] [address] Impression: 1. No acute intra-abdominal or intrapelvic abnormality 2. No bowel obstruction or bowel wall thickening. Normal appedix 3. Minimal colonic diverticulosis without acute diverticulitis [address] [place] [address] Impression: 1.Normal sonographic appearance of the bilateral ovaries 2. Endometrial calcifications are noted along with an indeterminate subcentimer cystic focus of thefundall endometrium. This finding should be correlated with beta hCG analysis 4c/o right ankle pain 5There is a complex 4.8 cm subcutaneous fluid collection in the left ankle at the indicated site of interest. The appearance likely represents abcess. Clinical correlation will be required 61. No acute bony abnormality seen in the right ankle 2. Marked soft tissue edema is present around the ankle, greatest overlying the lateral malleolus. There is a small focus of subcutaneous gas, and this likely corresponds to the reported report history of infection 3. Joint effusion Results Laboratory List Name Date Complete Blood Count w Differential (CBC ,DIFFH) 09/12/24 Comprehensive Metabolic Panel (COMP META B PANEL) 09/12/24 Ferritin (FERRITIN) 09/12/24 Iron Profile (IRON PROFILE) 09/12/24 Lyme Antibodies, IgG and IgM (LYME ABS I GG,IGM) 09/12/24 Magnesium Level (MAGNESIUM) 09/12/24 Thyroid Stimulating Hormone (TSH) 5 Vitamin B12 Level (VITAMIN B12) 09/12/24 Vitamin D, 25-Hydroxy Level, Total (25-H YDROXY VITAMIN D) 09/12/24 Most recent to oldest [Reference Range]: 1 eGFR CKD-EPI [>60 mL/min/1.73 m2] >90 mL /min/1.73 m2 1 (09/12/24 9:33 AM) Lyme Antibodies, IgG/IgM [NEG] NEGATIVE *Unknown* (09/12/24 9:33 AM) Vitamin D, 25-Hydroxy [30-100 ng/mL] 24 ng/mL 2 *LOW* (09/12/24 9:33 AM) Estimated CrCl 142.15 mL/min (09/12/24 10:18 AM) MPV [9.0-12.2 fL] 10.1 fL (09/12/24 9:33 AM) Immature Gran% 0.8 % (09/12/24 9:33 AM) Neut% 58.8 % (09/12/24 9:33 AM) Lymph% 28.5 % (09/12/24 9:33 AM) Tillman% 7.6 % (09/12/24 9:33 AM) Baso% 0.7 % (09/12/24 9:33 AM) Eos% 3.6 % (09/12/24 9:33 AM) Immat Gran, Abs [0-0.4 K/uL] 0.07 K/uL (09/12/24 9:33 AM) Neut, Abs [2.0-7.7 K/uL] 5.01 K/uL (09/12/24 9:33 AM) Lymph, Abs [1.0-3.4 K/uL] 2.43 K/uL (09/12/24 9:33 AM) Tillman, Abs [0-1.0 K/uL] 0.65 K/uL (09/12/24 9:33 AM) Baso, Abs [0-0.1 K/uL] 0.06 K/uL (09/12/24 9:33 AM) Eos, Abs [0-0.5 K/uL] 0.31 K/uL (09/12/24 9:33 AM) Type of Diff: AUTO *Unknown* (09/12/24: AM) RDW [11.5-14.2 %] 12.9 % (09/12/24 9: AM) Anion Gap [5-14 mmol/L] 3 mmol/L *LOW* (09/12/24 AM) Alb [3.5-5.0 g/dL] 4.0 g/dL (09/12/24 9: AM) Alk Phos [38-126 unit/L] 41 unit/L (09/12/24: AM) ALT [<35 unit/L] 13 unit/L (09/12/24 9: AM) AST [15-46 unit/L] 19 unit/L (09/12/24 AM) B12 [211-946 pg/mL] 356 pg/mL (09/12/24: AM) BUN [7-20 mg/dL] 11 mg/dL (09/12/24: AM) Ca [8.4-10.2 mg/dL] 8.7 mg/dL (09/12/24 9: AM) Cl- [96-107 mmol/L] 111 mmol/L *HI* (09/12/24 AM) HCO3 [22-30 mmol/L] 25 mmol/L (09/12/24: AM) Cret [0.60-1.00 mg/dL] 0.66 mg/dL (09/12/24 9:33 AM) Iron [37-145 ug/dL] 59 ug/dL (09/12/24 AM) Ferritin [6.2-137.0 ng/mL] 41.4 ng/mL 3 (09/12/24:33 AM) Glu [74-106 mg/dL] 109 mg/dL *HI* (09/12/24 9: AM) Hct [35-44 %] 45.7 % *HI* (09/12/24 9: AM) Hgb [11.7-15.0 g/dL] 15.5 g/dL *HI* (09/12/24 9: AM) K [3.5-5.1 mmol/L] 4.0 mmol/L (1/17/25 9:33 AM) MCH [28-33 pg] 31.3 pg (09/12/24 9:33 AM) MCHC [32-36 g/dL] 33.9 g/dL (09/12/24 9:33 AM) MCV [81-96 fL] 92.1 fL (09/12/24 9:33 AM) Mg [1.6-2.3 mg/dL] 2.2 mg/dL 4 (09/12/24 9:33 AM) Na [137-145 mmol/L] 139 mmol/L (09/12/24 9:33 AM) Plts [150-350 K/uL] 267 K/uL (09/12/24 9:33 AM) RBC [3.90-5.00 M/uL] 4.96 M/uL (09/12/24 9:33 AM) Fe Sat [14-50 %] 19 % (09/12/24 9:33 AM) T Bili [0.2-1.3 mg/dL] 0.3 mg/dL (09/12/24 9:33 AM) Total IBC [250-400 ug/dL] 312 ug/dL (09/12/24 9:33 AM) Prot [6.3-8.2 g/dL] 7.0 g/dL (09/12/24 9:33 AM) Transferrin [200-360 mg/dL] 264 mg/dL (09/12/24 9:33 AM) TSH [0.47-4.68 uIU/mL] 0.66 uIU/mL 5 (09/12/24 9:33 AM) WBC [4.0-10.4 K/uL] 8.53 K/uL (09/12/24 9:33 AM) 1Result Comment: Testing Performed By: Dept of Pathology [facility] [address] [place] [address] 2Result Comment: Deficiency: <20 ng/mL Insufficiency: 21-29 ng/mL Sufficiency: 30-100 ng/mL Potenial Toxicity: >150 ng/mL 3Result Comment: Testing Performed By: Dept of Pathology [facility] [address], [address] [facility] [place] [address] 4Result Comment: Testing Performed By: Dept of Pathology [facility] [address], [address], [place] [address] 5Result Comment: Testing Performed By: Dept of Pathology [facility] [address], [address], [place] [address] Social History Social History Type Response Tobacco Current every day sm oker, Cigarettes, 30 per day. 1 Smoking Status Current every day he mis smoker Sex Female Sex Representation Female (finding) 1Started smoking cigarettes around 10 yo, but regularly at 13 yo Patient Care team information Care Team Related Persons Name: MARY ELLEN CANTRELL Name: KEILA FLETCHER Name: SERJIO CAPONE
--- OUTSIDE RECORDS SUMMARY | 2024-09-28 16:01 | External Medical Summary | Continuity of Care Document ---
Author Name Unknown Organization [facility] [address] [place], [place] [id number] [id number]): [facility] - 09/12/24 [facility] [address] [facility] [address] [place], [place] [phone] Encounter Diagnosis Essential (primary) hypertension(Final) - Encounter for general adult medical examination without abnormal findings(Final) - Discharge Disposition: Home or Self Care Attending Physician: YURIY Sanchez Jessica A Referring Physician: YURIY Sanchez Jessica A Allergies, Adverse Reactions, Alerts Substance Criticality Severity [...] g, PRN: as needed for wheezing, Pharmacy: [facility][id number] Start Date: 05/08/24 Status: Ordered aspirin 81 mg oral tablet Start: 05/27/19 11:30:00 AM EDT, 1 tab, PO, Daily Start Date: 05/27/19 Status: Ordered Atarax 10 mg oral tablet Start: 07/15/24 1:27:00 PM EST, 1 tab, PO, tid, Disp# 30 tab, PRN: as needed for anxiety, Pharmacy:[facility] #[id number] Start Date: 07/15/24 Stop Date: 07/25/24 Status: Ordered busPIRone 7.5 mg oral tablet Start: 08/11/24 7:51:00 AM EST, 1 tab, PO, bid, Disp# 60 tab, Refills: 1, Pharmacy: [id number] Start Date: 08/11/24 Stop Date: 09/10/24 Status: [...] puff, inhaled, bid, Disp# 6 g, Pharmacy: [facility] #[id number] Start Date: 05/08/24 Status: Ordered Vitamin [...] 3 Completed cholecystectomy Completed tubal ligation Completed [address] [place] [address] Impression: 1. No evidence of DVT in the left upper extremity 2. Subcutaneous edema with a 4 mm crescentic likely calcified lesion in the subcutaneous fat. No evidence of abscess or drainable fluid collection [address] [place] [address] Impression: 1. No acute intra-abdominal or intrapelvic abnormality 2. No bowel obstruction or bowel wall thickening. Normal appedix 3. Minimal colonic diverticulosis without acute diverticulitis [address] [place] [address] Impression: 1.Normal sonographic appearance of the bilateral [...] Joint effusion Results Laboratory List Name Date Hemoglobin A1C (HEMOGLOBIN, A1C) 09/12/24 Lipid Profile (LIPOPROTEINS) 09/12/24 Most recent to oldest [Reference Range]: 1 Estimated Average Glucose 103 mg/dL 1 (09/12/24 9:37 AM) Non-HDL 144 mg/dL 2 (09/12/24 9:37 AM) Chol/HDL 6 (09/12/24 9:37 AM) Chol [125-200 mg/dL] 176 mg/dL (09/12/24 9:37 AM) HbA1c [4.0-6.0 %] 5.2 % (09/12/24 9:37 AM) HDL [>35 mg/dL] 32 mg/dL *LOW* (09/12/24 9:37 AM) LDL Chol, Calculated [50-130 mg/dL] 101 mg/dL (09/12/24 9:37 AM) TG [<200 mg/dL] 214 mg/dL *HI* (09/12/24 9:37 AM) 1Result Comment: Testing Performed By: Dept of Pathology [facility] [address], [address], [place] [address] 2Result Comment: Testing Performed By: Dept of Pathology [facility] [address], [address] [facility] [address], [place] [address] Social History Social History Type Response Tobacco [...]
--- NOTE | 2024-09-28 16:09 | Emergency Department Note ---
History of Present Illness General Chief complaint: Abdominal Pain Stated complaint: ABD PAIN, CHILLS, FEVER, COUGH, Time Seen by Provider: 09/28/24 16:07 History of Present Illness Maximum Pain Intensity: 6 This is a 39 year old female that presents to the emergency department via private vehicle with complaints of "left-sided abdominal pain". The patient notes that she could not fall asleep last night secondary to left-sided abdominal pain. She points to the epigastric region that then radiates to the left side of the abdomen and down the left lower quadrant. She notes this began around 1 AM this morning. She notes a history of cholecystectomy and tubal ligation. No other abdominal surgeries. She also noted some "heartburn" noting some sour tasting in the mouth. She denies any chest pain or shortness of breath. She states that when she would lay down pain seem to also increase. She tried Tums without any relief. She does note some minor dry cough which she attributes to the dry air in the home. Current pain 6/10. No vomiting. No dysuria. She notes that she has had normal bowel movements as of recent. Normal urinations. Home Medications Medication Instructions Recorded Confirmed Type aspirin 81 mg tablet,delayed 81 mg PO DAILY PRN NEEDED PER PT 04/17/19 09/28/24 History release budesonide-formoterol HFA 160 2 puff inhalation BID PRN 03/12/24 09/28/24 History mcg-4.5 mcg/actuation aerosol Shortness Of Breath Or Wheezing inhaler (Symbicort) albuterol sulfate 90 mcg/actuation 2 puff inhalation QID PRN Wheezing 09/03/24 09/28/24 History aerosol inhaler buspirone 7.5 mg tablet 7.5 mg PO BID 09/03/24 09/28/24 History mecobalamin (vitamin B12) 500 mcg 500 mcg PO UD 09/03/24 09/28/24 History chewable tablet multivitamin 1 tab PO DAILY 09/03/24 09/28/24 History cyclobenzaprine 5 mg tablet 5 mg PO BID PRN muscle spasm or 09/05/24 09/28/24 Rx tension #60 tabs magnesium 200 mg tablet 200 mg PO DAILY 09/05/24 09/28/24 History nortriptyline 25 mg capsule 25 mg PO HS #30 caps 09/05/24 09/28/24 Rx (Pamelor) rizatriptan 10 mg tablet 10 mg PO .COMPLEX PRN migraine 09/05/24 09/28/24 Rx headache #9 tabs Allergies Allergy/AdvReac Type Severity Reaction Status Date / Time Penicillins Allergy Intermediate HIVES/RASH, Verified 09/05/24 09:00 VOMITING pollen extracts Allergy Intermediate ITCHY Verified 09/05/24 09:00 EYES, SNEEZING, CONGESTION oxycodone Allergy Unknown Nausea Verified 09/05/24 09:00 Past Med/Surg History Problem List (Updated 09/28/24 @ 18:56 by Conner Luong PA-C) Acute appendicitis (Acute) Vertiginous migraine Migraine with aura Iron deficiency Vitamin B12 deficiency Vitamin D deficiency Sinusitis Chronic nonallergic rhinitis Pressure sensation in left ear Hx of migraines (Chronic) Vertigo (Chronic) Asthma (Chronic) Depression with anxiety (Chronic) Medical History No family history of bleeding disorder No family history of adverse response to anesthesia Lumbar vertebral fracture Surgical History S/P wisdom tooth extraction H/O atrial septal defect repair Hx of cholecystectomy History of tubal ligation Family History Family/Other Stroke Diabetes Alcoholism Father Hypertension Allergies Mother Heart disease Hypertension Allergies Asthma Sinusitis Stroke Cancer Other No family history of adverse response to anesthesia No family history of bleeding disorder Social History Smoking Status: Current every day smoker Tobacco Type: Cigarettes packs per day: 1; Second Hand Exposure: Yes; Do You Dip or Chew Tobacco: No; Hx Alcohol Use: Yes Alcohol Intake Frequency Comment: 1-2 times per week Hx Substance Use: No Preferred Language: Kyrgyz Communication Ability: Effective 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 Feels Safe at Home: Yes Childhood Exposure to Second-Hand Smoke: No Review of Systems A total of 10 systems reviewed and were otherwise negative Physical Exam Vital Signs Vital Signs - 24 hr 09/28/24 16:02 09/28/24 16:41 09/28/24 17:16 Temperature 36.3 C L Temperature Source Temporal Artery Scan Pulse Rate 115 H 92 H Pulse Rate [Apical] 94 H Pulse Rhythm [Apical] Pulse Strength [Apical] Respiratory Rate 18 18 Respiratory Effort / Characteristics Non-Labored Spontaneous Respiratory Depth Normal Respiratory Pattern Blood Pressure 166/132 H Blood Pressure [Right Arm] 168/107 H Blood Pressure Mean 143 Blood Pressure Mean [Right Arm] 127 Blood Pressure Position [Right Arm] Lying Pulse Oximetry 97 97 Oxygen Delivery Method Room Air Room Air Oxygen Flow Rate Sepsis Recent Fever Within 48 Hours Yes Sepsis New/Unexplained Change in Mental Status N/A Sepsis Action Taken by Nursing No Action Required 09/28/24 18:38 09/28/24 20:14 Temperature 36 C L Temperature Source Temporal Artery Scan Pulse Rate Pulse Rate [Apical] 90 118 H Pulse Rhythm [Apical] Regular Pulse Strength [Apical] Normal Respiratory Rate 18 23 Respiratory Effort / Characteristics Non-Labored Spontaneous Non-Labored Spontaneous Respiratory Depth Normal Normal Respiratory Pattern Regular Blood Pressure Blood Pressure [Right Arm] 150/91 H 170/87 H Blood Pressure Mean Blood Pressure Mean [Right Arm] 110 114 Blood Pressure Position [Right Arm] Lying Semi-fowlers Pulse Oximetry 97 94 Oxygen Delivery Method Room Air Oxymask Oxygen Flow Rate 8 Sepsis Recent Fever Within 48 Hours Sepsis New/Unexplained Change in Mental Status Sepsis Action Taken by Nursing VITAL SIGNS - Vital signs and nursing notes were reviewed. Tachycardia noted at 115 bpm. Stable and afebrile. GENERAL - 39-year-old female appearing her stated age who is in no acute distress. Communicates well with provider and answers questions appropriately. SKIN - Without rashes. HEAD - NC/AT. EYES - Sclera anicteric. MOUTH/OROPHARYNX - Without perioral cyanosis. NECK - Neck with FROM. No nuchal rigidity. LUNGS - Clear to auscultation CARDIAC - RRR ABDOMEN - Abdominal contour normal without pulsations or visible masses. Epigastric and mild L sided abd TTP. BS normoactive all four quadrants. No tenderness, palpable masses, hepatosplenomegaly, or ascites noted. No guarding or rigidity. EXTREMITIES - No clubbing or peripheral cyanosis. +5/5 strength noted in UE/LE bilaterally. NEUROLOGIC -cranial nerves grossly intact. PSYCH -Alert and oriented. Course Administered Medications Buspirone HCl (Buspirone 7.5 Mg Tab) 7.5 mg PO BID BARBARA Stop: 10/28/24 21:52 Last Admin: 09/28/24 22:47 Dose: 7.5 mg Documented By: RES Sodium Chloride (Nss) 1,000 mls @ 100 mls/hr IV .Q10H BARBARA Stop: 09/29/24 21:52 Last Admin: 09/28/24 21:53 Dose: 100 mls/hr Documented By: RES Nortriptyline HCl (Nortriptyline Hcl 25 Mg Cap) 25 mg PO HS BARBARA Stop: 10/28/24 21:52 Last Admin: 09/28/24 22:47 Dose: Not Given Documented By: RES Ondansetron HCl (Ondansetron Inj 2 Mg/Ml 2 Ml Vial) 4 mg IV Q6H PRN PRN Reason: Nausea And Vomiting Stop: 10/28/24 21:52 Last Admin: 09/28/24 22:51 Dose: 4 mg Documented By: LAILA Discontinued Medications Acetaminophen (Acetaminophen 1000 Mg/100 Ml Iv) Confirm Administered Dose 1,000 mg IV .STK-MED ONE Stop: 09/28/24 20:40 Last Admin: 09/28/24 20:53 Dose: Not Given Documented By: SED Bupivacaine HCl/Epinephrine Bitart (Bupivacaine/Epinephrine 0.5% Mpf 1:200,000 30 Ml Vial) Confirm Administered Dose 30 ml .ROUTE .STK-MED ONE Stop: 09/28/24 18:47 Last Admin: 09/28/24 19:58 Dose: 24 ml Documented By: ANDRY Famotidine (Pepcid 20mg Iv Push) 20 mg in 5 mls @ 2.5 mls/min IV NOW STA Stop: 09/28/24 16:16 Last Admin: 09/28/24 16:29 Dose: 2.5 mls/min Documented By: CC Sodium Chloride (Nss) 1,000 mls @ 999 mls/hr IV .Q1H1M ONE Stop: 09/28/24 17:15 Last Infusion: 09/28/24 17:57 Dose: Infused Documented By: Admin: 09/28/24 16:28 Dose: 999 mls/hr Documented By: CC Cefoxitin Sodium (Mefoxin) 2,000 mg in 60 mls @ 100 mls/hr IV NOW STA Stop: 09/28/24 19:19 Last Infusion: 09/28/24 22:05 Dose: Infused Documented By: Admin: 09/28/24 18:50 Dose: 100 mls/hr Documented By: CC Acetaminophen (Ofirmev) 1,000 mg in 100 mls @ 400 mls/hr IV NOW STA Stop: 09/28/24 20:51 Last Infusion: 09/28/24 22:04 Dose: Infused Documented By: Admin: 09/28/24 20:50 Dose: 400 mls/hr Documented By: SED Ioversol (Optiray 320 100ml) 94 ml IV ONCE ONE Stop: 09/28/24 17:08 Last Admin: 09/28/24 17:07 Dose: 94 ml Documented By: HUNTER Medical Decision Making Laboratory Data 09/28/24 16:21 09/28/24 16:21 Lab Results 09/28/24 09/28/24 Range/Units 16:21 17:56 WBC 15.25 H (4.8-10.8) K/ul RBC 5.07 (4.20-5.40) M/uL Hgb 15.8 (12.0-16.0) g/dl Hct 45.2 (37.0-47.0) % MCV 89.2 (80.0-100.0) fL MCH 31.2 (25.0-34.0) pg MCHC 35.0 (32.0-36.0) g/dL RDW Std Deviation 41.0 (36.4-46.3) fL RDW Coeff of [place] 12.5 (11.5-14.5) % Plt Count 270 (130-400) K/uL MPV 9.5 (9.4-12.4) fL Immature Gran % (Auto) 0.4 % Neut % (Auto) 73.0 % Lymph % (Auto) 19.3 % Jerome % (Auto) 5.5 % Eos % (Auto) 1.3 % Baso % (Auto) 0.5 % Neut # (Auto) 11.12 H (1.40-6.50) K/uL Lymph # (Auto) 2.95 (1.20-3.40) K/uL Jerome # (Auto) 0.84 H (0.11-0.59) K/uL Eos # (Auto) 0.20 (0.00-0.50) K/uL Baso # (Auto) 0.08 (0.00-0.20) K/uL Immature Gran # (Auto) 0.06 (0.01-0.20) K/uL Sodium 135 L (136-145) mmol/L Potassium 3.8 (3.5-5.1) mmol/L Chloride 104 (98-107) mmol/L Carbon Dioxide 25 (21-32) mmol/L Anion Gap 6 (3-11) BUN 6 (6-23) mg/dl Creatinine 0.58 L (0.6-1.2) mg/dl Est Cr Clr Drug Dosing 161.4 ml/min eGFR 118.72 BUN/Creatinine Ratio 10.3 (10-20) Glucose 107 H (70-99(Fasting)) mg/dl Calcium 9.0 (8.6-10.3) mg/dl Total Bilirubin 0.5 (0.2-1.0) mg/dl AST 13 (13-39) U/L ALT 8 (7-52) U/L Alkaline Phosphatase 43 (34-104) U/L Troponin I High Sens 4.3 (0-14) pg/ml Total Protein 6.9 (6.0-8.3) gm/dl Albumin 4.1 (3.4-5.0) gm/dl Globulin 2.8 (2.5-4.0) gm/dl Albumin/Globulin Ratio 1.5 (0.9-2) Lipase 7 L (11-82) U/L HCG, Qual Negative (Negative) Urine Color Yellow Urine Appearance Clear (Clear) Urine pH 7.0 (4.5-7.5) Ur Specific [place] 1.008 (1.000-1.030) Urine Protein Negative (Negative) Urine Glucose (UA) Negative (Negative) Urine Ketones Negative (Negative) Urine Blood 1+ H (Negative) Urine Nitrite Negative (Negative) Urine Bilirubin Negative (Negative) Urine Urobilinogen Negative (Negative) Ur Leukocyte Esterase Negative (Negative) Urine WBC (Auto) 0-5 (0-5) /hpf Urine RBC (Auto) 3-5 H (0-2) /hpf U Hyaline Cast (Auto) 0-2 (0-2) /lpf U Epithel Cells (Auto) 0-2 (0-2) /hpf Urine Bacteria (Auto) None Seen (None Seen) Imaging Data Radiologist's Impression: Abdomen/Pelvis CT 09/28/24 16:15 HISTORY: Lower abdominal pain. TECHNIQUE: Helical CT imaging of the abdomen pelvis with contrast was performed following uneventful administration of 94 mL of Optiray 320IV contrast. Images are presented in axial, sagittal, coronal reformats. COMPARISON: CT of the abdomen pelvis with contrast dated 03/12/2024. FINDINGS: Lung Bases/Inferior Mediastinum: Atrial appendage occlusion device. Liver: Unremarkable Gallbladder: Surgically absent. Spleen: Unremarkable Adrenals: Unremarkable Pancreas: Unremarkable Kidneys: Unremarkable Stomach/Bowel: The appendix is dilated with surrounding inflammation suggesting acute appendicitis. No evidence of perforation or abscess. Tip of the appendix measuring up to 1.3 cm in diameter. Small bowel loops are normal in caliber. Scattered colonic diverticula. No evidence of acute diverticulitis. Lymph nodes: Unremarkable Vasculature: Mild atherosclerotic vascular disease. No abdominal aortic aneurysm. Pelvis: Uterus and ovaries are unremarkable for age. Urinary bladder is unremarkable. No significant free pelvic fluid. Soft Tissues: Small fat-containing umbilical hernia. Bones: No acute osseous abnormality. IMPRESSION: * Acute uncomplicated appendicitis. Surgical consultation is recommended. * Additional chronic and/or incidental findings as above. Electronically signed by Scot Bartholomew 09-28-2024 5:24 PM MDM Narrative Patient was seen and evaluated as above in room C09. Review was performed of triage nursing notes and vital signs. I did review pertinent previous visits and patient history. After obtaining a thorough history and physical examination the above work up was performed. Patient presents to us today for evaluation of epigastric and left-sided abdominal pain that began around 0100 hrs. this morning. No trauma. No injury. No fever. She is tachycardic on arrival at 115 and hypertensive 166/132. On my exam the abdominal discomfort is minimally reproducible with palpation. There is no guarding or rigidity. Options of care were discussed with the patient. IV access with established. Labs are drawn. Patient was hydrated with 1 L of normal saline intravenously. IV Pepcid also ordered. Will proceed with CT scan of the abdomen/pelvis to further assess as well as laboratory studies here. To be thorough, EKG was performed and this reveals per my interpretation normal sinus rhythm at a rate of 99 bpm. QTc 456. QRS 86. No ST elevation on this rhythm tracing. Again, the patient denies any chest pain or shortness of breath but noting the epigastric pain to the left side of the abdomen did add on EKG and troponin for completeness. Labs reveal leukocytosis leukocytosis 15.25. No anemia. No emergent metabolic disturbance. hCG negative. Troponin x 1 negative. Urinalysis does not suggest infection. CT scan concerning for acute appendicitis. General surgery came to evaluate the patient. I discussed antibiotics with the patient. She has tolerated Rocephin here before and oral cephalosporins to include cephalexin. No reaction to these medicines. No history of anaphylaxis to penicillins. She notes it was a rash as a child. It is felt that the benefit of cefoxitin here outweighs risk compared to the alternatives. Patient amenable to proceed. This was ordered. Patient taken to the operative suite for further evaluation and management. Please refer to further documentation regarding her stay. In the evaluation and treatment of this patient the following differential diagnoses were entertained: Pancreatitis, splenic injury, bowel obstruction, diverticulitis, gastric ulcer, gastric perforation, gastritis, GERD, among others. Impression & Plan Acute appendicitis Discharge Plan Visit Data Chief Complaint: Abdominal Pain Stated Complaint: ABD PAIN, CHILLS, FEVER, COUGH, ED Provider: Erasto Kapoor ED Midlevel Provider: Conner Luong Discharge Problem: Acute appendicitis Patient Disposition: Being Evaluated by Surgeon Condition: Good Discharge Instructions Interventions: ED Discharge Assessment Last Done: 09/28/24 18:53
[2024-09-28] MEDS: SODIUM CHLORIDE 0.9% 1,000 ML IV ONE (16:28)
[2024-09-28] MEDS: FAMOTIDINE 20MG IV PUSH 20 MG/5 ML SYR IV STA (16:29)
[2024-09-28 16:38] LABS: Basophils # (auto) 0.08 K/uL (0.00-0.20); Basophils % (auto) 0.5 %; Eosinophils % (auto) 1.3 %; Hematocrit (blood only) 45.2 % (37.0-47.0); Hemoglobin 15.8 g/dl (12.0-16.0); Immature Granulocytes # (auto) 0.06 K/uL (0.01-0.20); Immature Granulocytes % (auto) 0.4 %; Lymphocytes # (auto) 2.95 K/uL (1.20-3.40); Lymphocytes % (auto) 19.3 %; Mean Corpuscular Hemoglobin 31.2 pg (25.0-34.0); Mean Corpuscular Volume 89.2 fL (80.0-100.0); Mean Platelet Volume 9.5 fL (9.4-12.4); Monocytes # (auto) 0.84 K/uL (0.11-0.59); Monocytes % (auto) 5.5 %; Neutrophils # (auto) 11.12 K/uL (1.40-6.50); Platelet Count 270 K/uL (130-400); RDW Coefficient of Variation 12.5 % (11.5-14.5); Red Blood Count 5.07 M/uL (4.20-5.40); White Blood Count 15.25 K/ul (4.8-10.8)
[2024-09-28 16:51] LABS: Pregnancy Test, Serum Negative (Negative)
[2024-09-28 16:52] LABS: Albumin Globulin Ratio 1.5 (0.9-2); Albumin Level 4.1 gm/dl (3.4-5.0); BUN Creatinine Ratio 10.3 (10-20); Bilirubin,Total 0.5 mg/dl (0.2-1.0); Creatinine Clr Calc Pharmacy 161.4 ml/min; Globulin 2.8 gm/dl (2.5-4.0); Potassium 3.8 mmol/L (3.5-5.1); Total Protein 6.9 gm/dl (6.0-8.3)
[2024-09-28 16:58] LABS: Troponin I High Sensitivity 4.3 pg/ml (0-14)
[2024-09-28] MEDS: OPTIRAY 320 100ml IV ONE (17:07)
--- NOTE | 2024-09-28 17:25 | CT Scan Report ---
HISTORY: Lower abdominal pain. TECHNIQUE: Helical CT imaging of the abdomen pelvis with contrast was performed following uneventful administration of 94 mL of Optiray 320IV contrast. Images are presented in axial, sagittal, coronal reformats. COMPARISON: CT of the abdomen pelvis with contrast dated 03/12/2024. FINDINGS: Lung Bases/Inferior Mediastinum: Atrial appendage occlusion device. Liver: Unremarkable Gallbladder: Surgically absent. Spleen: Unremarkable Adrenals: Unremarkable Pancreas: Unremarkable Kidneys: Unremarkable Stomach/Bowel: The appendix is dilated with surrounding inflammation suggesting acute appendicitis. No evidence of perforation or abscess. Tip of the appendix measuring up to 1.3 cm in diameter. Small bowel loops are normal in caliber. Scattered colonic diverticula. No evidence of acute diverticulitis. Lymph nodes: Unremarkable Vasculature: Mild atherosclerotic vascular disease. No abdominal aortic aneurysm. Pelvis: Uterus and ovaries are unremarkable for age. Urinary bladder is unremarkable. No significant free pelvic fluid. Soft Tissues: Small fat-containing umbilical hernia. Bones: No acute osseous abnormality. IMPRESSION: * Acute uncomplicated appendicitis. Surgical consultation is recommended. * Additional chronic and/or incidental findings as above. Electronically signed by Scot Bartholomew 09-28-2024 5:24 PM
[2024-09-28 18:08] LABS: Appearance Urine Clear (Clear); Bacteria Urine Automated None Seen (None Seen); Bilirubin Urine Negative (Negative); Blood Urine 1+ (Negative); Cast Urine Automated 0-2 /lpf (0-2); Color Urine Yellow; Epithelial Cell Urine Auto 0-2 /hpf (0-2); Glucose Urine UA Negative (Negative); Ketones Urine Negative (Negative); Leukocyte Esterase Urine Negative (Negative); Nitrite Urine Negative (Negative); Protein Urine Negative (Negative); Specific Gravity Urine 1.008 (1.000-1.030); Urobilinogen Urine Negative (Negative); WBC Urine Automated 0-5 /hpf (0-5)
[2024-09-28] MEDS: cefOXitin 2,000 MG/60 ML BAG IV STA (18:50)
--- NOTE | 2024-09-28 18:50 | History & Physical Report ---
Date of Service September 28, 2024 Assessment & Plan (1) Acute appendicitis: Plan: We discussed her findings and options. Recommend laparoscopic appendectomy YONAS. We discussed potential risks which include bleeding, infection, injury to another organ such as bladder bowel or ureter, DVT, PE, SD, CVA etc. Following our discussion I answered all of her questions. Will proceed this evening with laparoscopic appendectomy. (2) Asthma: (3) ASD (atrial septal defect): History of Present Illness Primary Care Provider: Mary Lopez MD 39 year-old female began having mid abdominal pain around 1 in the morning. Progressed overnight and into today. Workup in the emergency room reveals a leukocytosis as well as acute appendicitis on CT scan. Allergies Allergy/AdvReac Type Severity Reaction Status Date / Time Penicillins Allergy Intermediate HIVES/RASH, Verified 09/05/24 09:00 VOMITING pollen extracts Allergy Intermediate ITCHY Verified 09/05/24 09:00 EYES, SNEEZING, CONGESTION oxycodone Allergy Unknown Nausea Verified 09/05/24 09:00 Home Medications Medication Instructions Recorded Confirmed Type aspirin 81 mg tablet,delayed 81 mg PO DAILY PRN NEEDED PER PT 04/17/19 09/28/24 History release budesonide-formoterol HFA 160 2 puff inhalation BID PRN 03/12/24 09/28/24 History mcg-4.5 mcg/actuation aerosol Shortness Of Breath Or Wheezing inhaler (Symbicort) albuterol sulfate 90 mcg/actuation 2 puff inhalation QID PRN Wheezing 09/03/24 09/28/24 History aerosol inhaler buspirone 7.5 mg tablet 7.5 mg PO BID 09/03/24 09/28/24 History mecobalamin (vitamin B12) 500 mcg 500 mcg PO UD 09/03/24 09/28/24 History chewable tablet multivitamin 1 tab PO DAILY 09/03/24 09/28/24 History cyclobenzaprine 5 mg tablet 5 mg PO BID PRN muscle spasm or 09/05/24 09/28/24 Rx tension #60 tabs magnesium 200 mg tablet 200 mg PO DAILY 09/05/24 09/28/24 History nortriptyline 25 mg capsule 25 mg PO HS #30 caps 09/05/24 09/28/24 Rx (Pamelor) rizatriptan 10 mg tablet 10 mg PO .COMPLEX PRN migraine 09/05/24 09/28/24 Rx headache #9 tabs Past Med/Surg History Problem List (Updated 09/28/24 @ 18:49 by Abdon Byrne DO) Acute appendicitis Vertiginous migraine Migraine with aura Iron deficiency Vitamin B12 deficiency Vitamin D deficiency Sinusitis Chronic nonallergic rhinitis Pressure sensation in left ear Hx of migraines (Chronic) Vertigo (Chronic) Asthma (Chronic) Depression with anxiety (Chronic) Medical History No family history of bleeding disorder No family history of adverse response to anesthesia Lumbar vertebral fracture Surgical History S/P wisdom tooth extraction H/O atrial septal defect repair Hx of cholecystectomy History of tubal ligation Family History Family/Other Stroke Diabetes Alcoholism Father Hypertension Allergies Mother Heart disease Hypertension Allergies Asthma Sinusitis Stroke Cancer Other No family history of adverse response to anesthesia No family history of bleeding disorder Social History Smoking Status: Current every day smoker Tobacco Type: Cigarettes packs per day: 1; Second Hand Exposure: Yes; Do You Dip or Chew Tobacco: No; Hx Alcohol Use: Yes Alcohol Intake Frequency Comment: 1-2 times per week Hx Substance Use: No Preferred Language: [place] Communication Ability: Effective 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 Interface Developer Required: No Feels Safe at Home: Yes Childhood Exposure to Second-Hand Smoke: No Review of Systems All systems reviewed & are unremarkable except as noted in HPI & below Physical Exam Constitutional: WD/WN, vitals as above no acute distress and not ill appearing Eyes: PERRL, conjunctivae normal, anicteric sclerae EOM intact bilaterally ENMT: external ear and nose normal, oropharynx normal Ears: no hearing impairment Neck: trachea midline, no thyromegaly Respiratory: normal respiratory effort; no respiratory distress and does not use accessory muscles Cardiovascular: Rate/Rhythm: regular rate and regular rhythm Gastrointestinal (Abdomen): Soft. Positive tenderness greatest in the suprapubic and right lower quadrant. Positive guarding Skin: no rashes, warm and dry Psychiatric: Orientation: alert, oriented x 3 and cooperative Results & Data Vital Signs (Past 12 Hours) Vital Signs Temp Pulse Pulse Resp BP BP Pulse Ox 09/28/24 18:38 90 18 150/91 H 97 09/28/24 17:16 92 H 09/28/24 16:41 94 H 18 168/107 H 97 09/28/24 16:02 36.3 C L 115 H 18 166/132 H 97 O2 Del Method 09/28/24 18:38 Room Air 09/28/24 17:16 09/28/24 16:41 Room Air 09/28/24 16:02 Room Air
[2024-09-28] MEDS ORDERED: fentaNYL citrate PF 100 MCG/2 ML VIAL ONE (19:13)
[2024-09-28] MEDS ORDERED: ALBUTEROL HFA 8 GM INHALER INH ONE (19:13)
[2024-09-28] MEDS ORDERED: ATROPINE SULFATE 0.1 MG/ML 10ML SYR IV PRN (19:15)
[2024-09-28] MEDS ORDERED: ONDANSETRON INJ 2 MG/ML 2 ML VIAL IV PRN (19:15)
[2024-09-28] MEDS ORDERED: fentaNYL citrate PF 100 MCG/2 ML VIAL IV PRN (19:15)
[2024-09-28] MEDS ORDERED: ePHEDrine sulfate 50 MG/ML AMP IV PRN (19:15)
[2024-09-28] MEDS ORDERED: PROMETHAZINE HCL 6.25 MG in SODIUM CHLORIDE 0.9% 50 ML IV PRN (19:15)
--- NOTE | 2024-09-28 19:15 | Anesthesiology Consultation ---
Date of Service September 28, 2024 Assessment & Plan Chart Review Chart Review: Acceptable Risk for Surgery and Patient NOT seen in Pre Admission Testing Consults Requested none ASA [id number] Proposed Anesthesia Anesthesia Type: General Risk / Benefits Reviewed With: PT / POA / Parent / Guardian, Accepts Plan and Informed Consent Obtained History Surgery Operation Date: 09/28/24 19:30 Proposed Procedures p Laparoscopic Appendectomy - Abdon Byrne, DO Height/Weight Height: 5 ft 4 in Weight: 112.3 kg Allergies Allergy/AdvReac Type Severity Reaction Status Date / Time Penicillins Allergy Intermediate HIVES/RASH, Verified 09/05/24 09:00 VOMITING pollen extracts Allergy Intermediate ITCHY Verified 09/05/24 09:00 EYES, SNEEZING, CONGESTION oxycodone Allergy Unknown Nausea Verified 09/05/24 09:00 Medications Home Medications Medication Instructions Recorded Confirmed Last Taken aspirin 81 mg tablet,delayed 81 mg PO DAILY PRN NEEDED PER PT 04/17/19 09/28/24 Unknown release budesonide-formoterol HFA 160 2 puff inhalation BID PRN 03/12/24 09/28/24 Unknown mcg-4.5 mcg/actuation aerosol Shortness Of Breath Or Wheezing inhaler (Symbicort) albuterol sulfate 90 mcg/actuation 2 puff inhalation QID PRN Wheezing 09/03/24 09/28/24 Unknown aerosol inhaler buspirone 7.5 mg tablet 7.5 mg PO BID 09/03/24 09/28/24 Unknown mecobalamin (vitamin B12) 500 mcg 500 mcg PO UD 09/03/24 09/28/24 Unknown chewable tablet multivitamin 1 tab PO DAILY 09/03/24 09/28/24 Unknown cyclobenzaprine 5 mg tablet 5 mg PO BID PRN muscle spasm or 09/05/24 09/28/24 Unknown tension #60 tabs magnesium 200 mg tablet 200 mg PO DAILY 09/05/24 09/28/24 Unknown nortriptyline 25 mg capsule 25 mg PO HS #30 caps 09/05/24 09/28/24 Unknown (Pamelor) rizatriptan 10 mg tablet 10 mg PO .COMPLEX PRN migraine 09/05/24 09/28/24 Unknown headache #9 tabs Active Medications Generic Name Dose Route Start Last Admin Trade Name Freq PRN Reason Stop Dose Admin Cefoxitin Sodium 2,000 mg in 60 mls @ 100 mls/hr 09/28/24 18:44 09/28/24 18:50 Mefoxin IV 09/28/24 19:19 100 mls/hr NOW STA Administration NPO Date Last Intake of Fluids: 09/28/24 Time Last Intake of Fluids: 16:00 Date Last Intake of Solids: 09/28/24 Time Last Intake of Solids: 23:00 Past Medical History Medical History No family history of bleeding disorder No family history of adverse response to anesthesia Lumbar vertebral fracture Exercise / Class Metabolic Activity II 4-5 Yardwork/Stairs/Walk up hill Past Family History Family History Family/Other Stroke Diabetes Alcoholism Father Hypertension Allergies Mother Heart disease Hypertension Allergies Asthma Sinusitis Stroke Cancer Other No family history of adverse response to anesthesia No family history of bleeding disorder Past Surgical History Surgical History S/P wisdom tooth extraction H/O atrial septal defect repair Hx of cholecystectomy History of tubal ligation Past Anesthesia History No Hx of Anesthesia Complications and No Family Hx of Anesthesia Complications History of PONV No Hx of PONV and No Hx of Motion Sickness Social History Smoking Status: Current every day smoker Do You Dip or Chew Tobacco: No Hx Alcohol Use: Yes Hx Substance Use: No Physical Exam Vital Signs Last Vital Signs Temp 36.3 C L 09/28/24 16:02 Pulse 90 09/28/24 18:38 Resp 18 09/28/24 18:38 BP 150/91 H 09/28/24 18:38 Pulse Ox 97 09/28/24 18:38 O2 Del Method Room Air 09/28/24 18:38 Constitutional + obese ENMT Mouth: no dentition abnormality Thyromental Distance: > or= 3.5 Finger Breadths Mallampati Class: II Neck normal visual inspection Respiratory normal respiratory effort Auscultation: lungs clear to auscultation bilaterally Cardiovascular Rate/Rhythm: regular rate and regular rhythm Psychiatric Orientation: alert Testing Laboratory Results 09/28/24 16:21 09/28/24 16:21 Urine Color Yellow 09/28/24 17:56 Urine Appearance Clear (Clear) 09/28/24 17:56 Urine pH 7.0 (4.5-7.5) 09/28/24 17:56 Ur Specific [place] 1.008 (1.000-1.030) 09/28/24 17:56 Urine Protein Negative (Negative) 09/28/24 17:56 Urine Glucose (UA) Negative (Negative) 09/28/24 17:56 Urine Ketones Negative (Negative) 09/28/24 17:56 Urine Nitrite Negative (Negative) 09/28/24 17:56 Ur Leukocyte Esterase Negative (Negative) 09/28/24 17:56 Urine WBC (Auto) 0-5 /hpf (0-5) 09/28/24 17:56 Urine RBC (Auto) 3-5 /hpf (0-2) H 09/28/24 17:56 U Hyaline Cast (Auto) 0-2 /lpf (0-2) 09/28/24 17:56 U Epithel Cells (Auto) 0-2 /hpf (0-2) 09/28/24 17:56 Urine Bacteria (Auto) None Seen (None Seen) 09/28/24 17:56
[2024-09-28] MEDS ORDERED: LIDOCAINE 2% 2 ML VIAL/AMP(20MG/ML) INFIL ONE (19:41)
[2024-09-28] MEDS ORDERED: DEXAMETHASONE SOD INJ 4 MG/ML VIAL ONE (19:41)
[2024-09-28] MEDS ORDERED: ONDANSETRON INJ 2 MG/ML 2 ML VIAL ONE (19:41)
[2024-09-28] MEDS ORDERED: PROPOFOL IV EMULSION 10 MG/ML 20 ML VIAL IV ONE (19:41)
[2024-09-28] MEDS ORDERED: SUCCINYLCHOLINE CHLORIDE 20 MG/ML 10 ML VIAL IV ONE (19:41)
[2024-09-28] MEDS ORDERED: ROCURONIUM BROMIDE 10 MG/ML 5 ML VIAL IV ONE (19:41)
[2024-09-28] MEDS ORDERED: SUGAMMADEX SODIUM 200 MG/2 ML VIAL IV ONE (19:53)
[2024-09-28] MEDS: BUPIVACAINE/EPINEPHRINE 0.5% MPF 1:200,000 30 ML VIAL ONE (19:58)
[2024-09-28] MEDS ORDERED: KETOROLAC 30 MG/ML VIAL ONE (20:00)
--- NOTE | 2024-09-28 20:03 | Operative Report ---
PG Post Operative Report Pre & Post Diagnosis Operation Date: 09/28/24 19:30 Pre-Op Diagnosis: Acute appendicitis Post-Op Diagnosis: Acute appendicitis I identified the patient and participated in the time-out.: Yes Procedure Operation Date: 09/28/24 19:30 Actual Procedures p Laparoscopic Appendectomy(Not Applicable) - Abdon Byrne DO Surgeon Abdon Byrne DO Photographic Aide arjun Morales Estimated Blood Loss 10 Findings Consistent with Post-Op Diagnosis Specimens appendix Description of Procedure After informed consent was obtained the patient was taken to the operating room and placed in supine position. After successful intubation the left arm was tucked and the abdomen was sterilely prepped and draped in usual fashion. I began by making a periumbilical incision with an 11 blade scalpel and carried this down through the soft tissue using electrocautery. The anterior rectus fascia was opened using electrocautery and 2 #0 Vicryl stay sutures were placed. The peritoneum was elevated using hemostats and incised under direct vision using a Metzenbaum scissor. A finger sweep was performed. A 12 mm Bunn trocar was placed and the abdomen was insufflated to 18 mmHg. A laparoscope was inserted and the abdomen was examined in 360. A suprapubic 5 mm port and a left lower quadrant 12 mm port were placed under direct vision. The patient was air planed to the left as well as placed in a slight Trendelenburg position. We began by looking in the right lower quadrant. We were able to readily identify the appendix and it was grossly inflamed. It had not perforated. There is a small amount of purulent fluid in the right lower quadrant and the pelvis. We immediately irrigated and suctioned this out. I was able to use primarily blunt dissection to pull the appendix away from the right lower quadrant sidewall. Next I used a [place] dissector to create a window in the mesentery of the appendix. I was then able to use a SAM brown cartridge stapler to transect first the mesentery of the appendix as well as the appendix itself at its base with the cecum. It was then placed into an Endo Catch bag and removed from the camera port site. We thoroughly irrigated the right lower quadrant as well as the pelvis. There was a small amount of bleeding from the mesenteric staple line. I used a clip clinical supervisor to control this. Following placement of the clips, there was adequate hemostasis. I ran the small bowel backwards from the terminal ileum for about 6 feet all of which was normal. All the peritoneal surfaces were normal. Small/ large bowel, liver, stomach etc. all appeared grossly normal. We did a final irrigation and then removed all the trochars and desufflated the abdomen. The fascia of the camera port was closed using 0 Vicryl in a [id number] fashion. Wounds were all irrigated and closed using 4-0 Monocryl. Marcaine was injected around them for postoperative analgesia and skin glue used as a dressing. The patient was awakened extubated and transferred to recovery in stable condition. My physician's city carrier assistant was present through the entire case. he assisted with prepping the patient and helped with exposure for port placement, helped run the camera and helped with fascial/wound closure at the end of the procedure as well as dressing placement. I attest to the content of the Intraoperative Record and any orders documented therein. Any exceptions are noted below. I attest to the content of the Intraoperative Record and any orders documented therein. Any exceptions are noted below.
--- NOTE | 2024-09-28 20:22 | Anesthesiology Progress Note ---
Date of Service September 28, 2024 Anesthesia Post Procedure Vital Signs Vital Signs: Temp Pulse Pulse Resp BP BP Pulse Ox 09/28/24 18:38 90 18 150/91 H 97 09/28/24 17:16 92 H 09/28/24 16:41 94 H 18 168/107 H 97 09/28/24 16:02 36.3 C L 115 H 18 166/132 H 97 O2 Del Method 09/28/24 18:38 Room Air 09/28/24 17:16 09/28/24 16:41 Room Air 09/28/24 16:02 Room Air Pain Intensity Right Upper Abdomen: Pain Intensity: 6 Transfer of Care Handoff Completed per policy Notes Mental Status: alert / awake / arousable Patient Amnestic to Procedure: Yes Nausea / Vomiting: adequately controlled Pain: adequately controlled Airway Patency, RR, SpO2: stable & adequate BP & HR: stable & adequate Hydration State: stable & adequate Anesthetic Complications: no major complications apparent
[2024-09-28] MEDS: ACETAMINOPHEN 1,000 MG/100 ML VIAL IV STA (20:50)
[2024-09-28] MEDS: ACETAMINOPHEN 1000 MG/100 ML IV IV ONE (20:53)
[2024-09-28] MEDS ORDERED: CYCLOBENZAPRINE HCL 5 MG TAB PO PRN (21:53)
[2024-09-28] MEDS ORDERED: BUDESONIDE/FORMOTEROL FUMARATE 160/4.5 60 PUFFS/INHALER INH PRN (21:53)
[2024-09-28] MEDS: SODIUM CHLORIDE 0.9% 1,000 ML IV SCH (21:53)
[2024-09-28] MEDS ORDERED: RIZATRIPTAN BENZOATE 10 MG TAB PO PRN (21:53)
[2024-09-28] MEDS ORDERED: ALBUTEROL HFA 8 GM INHALER INH PRN (21:53)
[2024-09-28] MEDS: busPIRone 7.5 MG TAB PO SCH (22:47)
[2024-09-28] MEDS: NORTRIPTYLINE HCL 25 MG CAP PO SCH (22:47)
[2024-09-28] MEDS: ONDANSETRON INJ 2 MG/ML 2 ML VIAL IV PRN (22:51)
[2024-09-28] MEDS: MoRPHine SULFATE 4 MG/ML 1 ML CARP\\VIAL IV PRN (23:44)
[2024-09-29] MEDS: cefOXitin 2,000 MG in DEXTROSE 5 % MINI-B 50 ML IV SCH (01:50)
[2024-09-29 06:29] LABS: Basophils # (auto) 0.02 K/uL (0.00-0.20); Basophils % (auto) 0.2 %; Hematocrit (blood only) 39.3 % (37.0-47.0); Hemoglobin 13.2 g/dl (12.0-16.0); Immature Granulocytes # (auto) 0.06 K/uL (0.01-0.20); Immature Granulocytes % (auto) 0.5 %; Lymphocytes # (auto) 1.18 K/uL (1.20-3.40); Lymphocytes % (auto) 9.6 %; Mean Corpuscular Hemoglobin 30.6 pg (25.0-34.0); Mean Corpuscular Hgb Conc 33.6 g/dL (32.0-36.0); Mean Platelet Volume 9.5 fL (9.4-12.4); Monocytes # (auto) 0.58 K/uL (0.11-0.59); Monocytes % (auto) 4.7 %; Platelet Count 223 K/uL (130-400); RDW Coefficient of Variation 12.6 % (11.5-14.5); Red Blood Count 4.32 M/uL (4.20-5.40); White Blood Count 12.24 K/ul (4.8-10.8)
[2024-09-29 06:44] LABS: BUN Creatinine Ratio 12.3 (10-20); Calcium 8.4 mg/dl (8.6-10.3); Creatinine Clr Calc Pharmacy 164.8 ml/min; Potassium 4.1 mmol/L (3.5-5.1)
[2024-09-29] MEDS: ACETAMINOPHEN 1,000 MG/100 ML VIAL IV PRN (07:40)
[2024-09-29] MEDS: CYANOCOBALAMIN (B-12) 500 MCG TABLET PO SCH (07:42)
[2024-09-29] MEDS: MAGNESIUM OXIDE 400 MG TAB PO SCH (07:43)
[2024-09-29] MEDS: MULTIVITAMIN TAB PO SCH (07:43)
--- NOTE | 2024-09-29 08:28 | Electrocardiogram Report ---
Test Reason : Blood Pressure : */* mmHG Vent. Rate : 99 BPM Atrial Rate : 99 BPM P-R Int : 152 ms QRS Dur : 86 ms QT Int : 356 ms P-R-T Axes : 30 8 56 degrees QTcB Int : 456 ms Normal sinus rhythm Low voltage QRS Normal ECG When compared with ECG of 12-Mar-2024 17:21, No significant change was found Confirmed by Elder Edmond ([id number]) on 09/29/2024 8:28:18 AM Referred By: REFERRED SELF Confirmed By: Elder Edmond
--- NOTE | 2024-09-29 09:11 | Surgery Progress Note ---
Date of Service September 29, 2024 Assessment & Plan (1) Acute appendicitis: Plan Patient is POD #1 from laparoscopic appendectomy Has been tolerating clears without any issues overnight, will advance to regular diet. If patient is able to tolerate lunch she can be discharged later today. Pain currently well-controlled, however she does complain of soreness with coughing. Will order an abdominal binder for her to take home with her Discussed postoperative instructions with the patient which include no heavy lifting (greater than 10 pounds), no soaking incisions, and pain control. She will follow up with our office in 2 weeks for her post-operative check up. Admission and Anticipated Discharge Date Admission Date: September 28, 2024 Subjective Patient seen evaluated this morning, states that she does have some postoperative discomfort, mostly with coughing, and requesting an abdominal binder if possible. Tolerating diet without any issues of abdominal pain, nausea vomiting Afebrile and WBC 12 today VSS, denies CP or SOB Physical Exam Constitutional: WD/WN, vitals as above Respiratory: normal respiratory effort, lungs clear to auscultation Cardiovascular: RRR, no murmur, no edema Gastrointestinal (Abdomen): Abdomen soft, nondistended, appropriate tenderness palpation over surgical sites. Surgical sites with Dermabond in place and sites are clean, dry and intact without signs of overlying infection. Skin: no rashes, warm and dry Results & Data Vital Signs (Past 12 Hours) Vital Signs Temp Pulse Resp BP Pulse Ox O2 Del Method 09/29/24 07:22 36.8 C 87 18 139/83 92 Room Air 09/29/24 04:30 36.7 C 87 18 141/83 H 92 Room Air 09/29/24 00:30 37.0 C 95 H 18 134/83 93 Room Air 09/28/24 23:30 37.1 C 99 H 18 131/83 93 Room Air 09/28/24 22:30 36.7 C 103 H 18 140/83 95 Room Air 09/28/24 22:00 36.8 C 99 H 18 137/82 93 Room Air 09/28/24 21:30 37.8 C H 104 H 18 137/82 92 Room Air 09/28/24 21:30 37.8 C H 104 H 18 137/83 92 Room Air PG Care Time/CCT Total # of Minutes Spent Total Time Spent with Patient: Total time spent is greater than 50% in coordination of care (as documented) at patient's floor/unit and/or counseling patient: [place] [address] Post Operative Follow-Up Patient Type Established Diagnoses Acute appendicitis K35.80
[2024-09-29 11:19] VITALS: BP 129/84; RESP 17; TEMP 97.9; O2SAT 95
[2024-09-29 12:30] VITALS: PULSE 95
--- NOTE | 2024-10-06 19:10 | Discharge Summary ---
Date of Service October 06, 2024 Date of admission: 09/28/2024 Date of discharge: 09/29/2024 Admission HPI Per Admitting Provider 39 year-old female began having mid abdominal pain around 1 in the morning. Progressed overnight and into today. Workup in the emergency room reveals a leukocytosis as well as acute appendicitis on CT scan. Discharge Data Procedures Performed Operation Date: 09/28/24 19:30 Actual Procedures p Laparoscopic Appendectomy(Not Applicable) - Abdon Byrne, Hospital Course (1) Acute appendicitis: Date of admission: 09/28/2024 Date of discharge: 09/29/2024 This patient presented to the emergency department on 09/28/2024 secondary to abdominal pain. Patient underwent a CT scan of the abdomen pelvis which showed findings concerning for acute appendicitis. Because of these findings Dr. Byrne took her to the operating room on the date of admission where he performed a laparoscopic cholecystectomy. Patient was observed in the hospital overnight and was felt to be stable for discharge home after an uneventful postoperative course on 09/29/2024 which was postop day #1. She was instructed on appropriate wound care, diet, activity. She was instructed to follow-up Dr. Byrne in the outpatient clinic in 1 to 2 weeks. Coding Level of Care Code None Diagnoses Acute appendicitis K35.80
== END 2024-09-29 12:53 | disposition home or self-care (01) | DRG 399 ==
LOC: ED 15:58 → 3N 18:53 → INTOOBSV 20:18 → 3N 20:18

== ENCOUNTER 2025-06-25 10:29 | Observation (INO) ==
--- NOTE | 2025-06-25 11:03 | Emergency Department Note ---
Impression & Plan Asthma with exacerbation, Viral upper respiratory illness ED Provider Note CHIEF COMPLAINT: Shortness of breath HISTORY OF PRESENTING ILLNESS: The patient is a pleasant, 39-year-old female who arrives to the emergency department for evaluation of upper respiratory symptoms with shortness of breath. Patient reports past medical history of asthma. She reports she had a cold that began on Sunday, with rhinorrhea sore throat, and cough. She states yesterday she became increasingly short of breath, without chest pain. She states she has used her albuterol inhaler at home, however it has not helped her symptoms. She reports no fever. She is tachycardic upon arrival, with slight hypertension. She is afebrile. REVIEW OF SYSTEMS: See HPI for pertinent positives and pertinent negatives. ALLERGIES: See below MEDICATIONS: See below PAST MEDICAL HISTORY: See below PHYSICAL EXAM: VITALS: Vitals are noted on the nurse's note and reviewed by myself. Vital signs stable. GENERAL: 39-year-old female, in no acute distress, nondiaphoretic, well- developed well-nourished. SKIN: The skin was without rashes, erythema, edema, or bruising. HEAD: Normocephalic atraumatic. HEART: Tachycardia with regular rhythm without murmurs gallops or rubs. LUNGS: Clear to auscultation bilaterally inspiratory expiratory wheezing noted throughout. Increased work of breathing. ABDOMEN: Positive bowel sounds x 4. Soft, nontender, without masses or organomegaly. [place] sign negative. No guarding or rebound tenderness. MUSCULOSKELETAL: No muscle atrophy, erythema, or edema noted. Normal gait. Strength 5/5 throughout. NEURO: Patient was alert and oriented to person place and time. No focal neurological deficits. DIFFERENTIAL DIAGNOSIS: Reactive airway disease, pneumonia, pneumothorax, COPD, CHF, infections, cardiac ischemia, pulmonary embolism, musculoskeletal, gastrointestinal, as well as other pathologies. ED COURSE AND MEDICAL DECISION MAKING: HISTORY FROM INDEPENDENT HISTORIAN: Family member at bedside serving as secondary historian. MEDICATIONS GIVEN: 125 mg IV Solu-Medrol, DuoNeb treatment x 3, 1 L NSS bolus MONITOR: Continuous hose coupling joiner: Order was placed for continuous hose coupling joiner. Patient was placed on the hose coupling joiner and continuous pulse ox. Patient was noted to be in normal sinus rhythm at an initial rate of 98 bpm per my interpretation. INTERPRETATION OF LABS: I interpreted the labs with full lab results as below in the lab section of this note. Pertinent lab results discussed in the MDM section below. INTERPRETATION OF IMAGING: Imaging studies were interpreted by myself and read by radiology as per the imaging section of this note. CHRONIC MEDICAL/SOCIAL CONDITIONS AFFECTING CARE: Asthma MDM SUMMARY: The patient is a pleasant, 39-year-old female who arrives to the emergency department for evaluation of the above-stated complaint. Saline lock was established, lab work was obtained. CBC shows no leukocytosis, no anemia. D-dimer 400. CMP is unremarkable. COVID/flu/RSV negative. Chest x-ray imaging per my interpretation shows no acute cardiopulmonary process. Patient was provided IV Solu-Medrol, IV fluids, and DuoNeb treatments x 3, with no improvement in her symptoms. Ambulatory pulse ox trial was performed, with 90% saturation maintained, however tachypnea present. The patient is visibly short of breath, and I do not feel she is stable for discharge at this time. Contact was made with the [facility] hospitalist group for admission. Dr. Mejia agreed to evaluate and accept the patient for admission. Please refer to their documentation for further patient workup and care. DIAGNOSIS: Acute exacerbation of asthma, upper respiratory viral illness The chart was completed utilizing [employer] Speech voice recognition software. Grammatical errors, random word insertions, pronoun errors, and incomplete sentences are an occasional consequence of this system due to software limitations, ambient noise, and hardware issues. Any formal questions or concerns about the content, text, or information contained within the body of this dictation should be directly addressed to the provider for clarification. Past Med/Surg History Problem List (Updated 06/25/25 @ 17:16 by MERLY Scott) Viral upper respiratory illness (Acute) Asthma with exacerbation (Acute) Cigarette smoker Acute hypoxic respiratory failure Acute exacerbation of asthma with allergic rhinitis History of laparoscopic appendectomy (09/28/24) Laparoscopic Appendectomy(Not Applicable) - Abdon Byrne, Vertiginous migraine Migraine with aura Iron deficiency Vitamin B12 deficiency Vitamin D deficiency Sinusitis Chronic nonallergic rhinitis Pressure sensation in left ear Hx of migraines (Chronic) Vertigo (Chronic) Asthma (Chronic) Depression with anxiety (Chronic) Medical History Acute appendicitis No family history of bleeding disorder No family history of adverse response to anesthesia Lumbar vertebral fracture Surgical History S/P wisdom tooth extraction H/O atrial septal defect repair Hx of cholecystectomy History of tubal ligation Family History Family/Other Stroke Diabetes Alcoholism Father Hypertension Allergies Mother Heart disease Hypertension Allergies Asthma Sinusitis Stroke Cancer Other No family history of adverse response to anesthesia No family history of bleeding disorder Social History Smoking Status: Current every day smoker Tobacco Type: Cigarettes packs per day: 1; Cigarettes Per Day: 1.5 packs a day.; Second Hand Exposure: Yes; Do You Dip or Chew Tobacco: No; Hx Alcohol Use: No Hx Substance Use: No Preferred Language: Hungarian Communication Ability: Effective Hot Frame Tender Required: No Beliefs That Will Affect Care: None Current Living Situation: Family Current Living Situation Comment: and Children. Feels Safe at Home: Yes Childhood Exposure to Second-Hand Smoke: No Assistive Devices: None Allergies Allergies Allergy/AdvReac Type Severity Reaction Status Date / Time Penicillins Allergy Intermediate HIVES/RASH, Verified 10/13/24 09:02 VOMITING pollen extracts Allergy Intermediate ITCHY Verified 10/13/24 09:02 EYES, SNEEZING, CONGESTION oxycodone AdvReac Unknown Nausea Verified 10/13/24 09:02 Home Meds Home Medications Medication Instructions Recorded Confirmed aspirin 81 mg tablet,delayed 81 mg PO DAILY PRN NEEDED PER PT 04/17/19 09/28/24 release budesonide-formoterol HFA 160 2 puff inhalation BID PRN 03/12/24 09/28/24 mcg-4.5 mcg/actuation aerosol Shortness Of Breath Or Wheezing inhaler (Symbicort) albuterol sulfate 90 mcg/actuation 2 puff inhalation QID PRN Wheezing 09/03/24 09/28/24 aerosol inhaler buspirone 7.5 mg tablet 7.5 mg PO BID 09/03/24 09/28/24 mecobalamin (vitamin B12) 500 mcg 500 mcg PO UD 09/03/24 09/28/24 chewable tablet multivitamin 1 tab PO DAILY 09/03/24 09/28/24 magnesium 200 mg tablet 200 mg PO DAILY 09/05/24 09/28/24 ondansetron 8 mg disintegrating 8 mg PO Q12H PRN 10/13/24 10/13/24 tablet Previous Rx's Medication Instructions Recorded cyclobenzaprine 5 mg tablet 5 mg PO BID PRN muscle spasm or 09/05/24 tension #60 tabs nortriptyline 25 mg capsule 25 mg PO HS #30 caps 09/05/24 (Pamelor) rizatriptan 10 mg tablet 10 mg PO .COMPLEX PRN migraine 09/05/24 headache #9 tabs Results & Data (ED) Vital Signs Vital Signs - 24 hr 06/25/25 10:39 06/25/25 12:11 06/25/25 12:25 Temperature 36.5 C Temperature Source Temporal Artery Scan Pulse Rate 98 H 96 H Pulse Rate [Apical] Pulse Rate [Exercises] Pulse Rate from SpO2 Sensor Respiratory Rate 20 Respiratory Rate [Exercises] Respiratory Effort / Characteristics Respiratory Depth Blood Pressure 152/100 H Blood Pressure [Right Arm] Blood Pressure Mean 117 Blood Pressure Mean [Right Arm] Pulse Oximetry 94 97 Pulse Oximetry [Exercises] Oxygen Delivery Method Room Air Room Air Sepsis Recent Fever Within 48 Hours No Sepsis New/Unexplained Change in Mental Status N/A Sepsis Action Taken by Nursing No Action Required 06/25/25 14:11 06/25/25 14:23 06/25/25 14:36 Temperature Temperature Source Pulse Rate 91 H 94 H Pulse Rate [Apical] Pulse Rate [Exercises] 100 H Pulse Rate from SpO2 Sensor 94 H Respiratory Rate 24 24 Respiratory Rate [Exercises] 18 Respiratory Effort / Characteristics Respiratory Depth Blood Pressure 162/96 H 143/102 H Blood Pressure [Right Arm] Blood Pressure Mean 106 115 Blood Pressure Mean [Right Arm] Pulse Oximetry 93 91 Pulse Oximetry [Exercises] 90 Oxygen Delivery Method Room Air Room Air Sepsis Recent Fever Within 48 Hours Sepsis New/Unexplained Change in Mental Status Sepsis Action Taken by Nursing 06/25/25 15:06 06/25/25 15:33 06/25/25 16:25 Temperature Temperature Source Pulse Rate 95 H 107 H 92 H Pulse Rate [Apical] Pulse Rate [Exercises] Pulse Rate from SpO2 Sensor 95 H 110 H Respiratory Rate 19 25 H Respiratory Rate [Exercises] Respiratory Effort / Characteristics Respiratory Depth Blood Pressure 135/87 139/90 Blood Pressure [Right Arm] Blood Pressure Mean 103 106 Blood Pressure Mean [Right Arm] Pulse Oximetry 92 91 Pulse Oximetry [Exercises] Oxygen Delivery Method Room Air Sepsis Recent Fever Within 48 Hours Sepsis New/Unexplained Change in Mental Status Sepsis Action Taken by Nursing 06/25/25 16:55 Temperature Temperature Source Pulse Rate Pulse Rate [Apical] 87 Pulse Rate [Exercises] Pulse Rate from SpO2 Sensor Respiratory Rate 17 Respiratory Rate [Exercises] Respiratory Effort / Characteristics Non-Labored Respiratory Depth Normal Blood Pressure Blood Pressure [Right Arm] 139/75 Blood Pressure Mean Blood Pressure Mean [Right Arm] 96 Pulse Oximetry 92 Pulse Oximetry [Exercises] Oxygen Delivery Method Room Air Sepsis Recent Fever Within 48 Hours Sepsis New/Unexplained Change in Mental Status Sepsis Action Taken by Retirement Medications Current Medication List: was personally reviewed by me Laboratory Data Attestation: I reviewed the patient's lab results. 06/25/25 11:54 06/25/25 11:54 Lab Results 06/25/25 06/25/25 Range/Units 11:54 Unknown WBC 7.29 (4.8-10.8) K/ul RBC 4.95 (4.20-5.40) M/uL Hgb 15.7 (12.0-16.0) g/dl Hct 44.8 (37.0-47.0) % MCV 90.5 (80.0-100.0) fL MCH 31.7 (25.0-34.0) pg MCHC 35.0 (32.0-36.0) g/dL RDW Std Deviation 41.8 (36.4-46.3) fL RDW Coeff of [place]cel[place] 12.6 (11.5-14.5) % Plt Count 240 (130-400) K/uL MPV 9.6 (9.4-12.4) fL Immature Gran % (Auto) 0.3 % Neut % (Auto) 69.3 % Lymph % (Auto) 21.0 % [place] % (Auto) 8.0 % Eos % (Auto) 1.0 % Baso % (Auto) 0.4 % Neut # (Auto) 5.06 (1.40-6.50) K/uL Lymph # (Auto) 1.53 (1.20-3.40) K/uL [place] # (Auto) 0.58 (0.11-0.59) K/uL Eos # (Auto) 0.07 (0.00-0.50) K/uL Baso # (Auto) 0.03 (0.00-0.20) K/uL Immature Gran # (Auto) 0.02 (0.01-0.20) K/uL D-Dimer 400 (0-500) ug/L FEU Sodium 136 (136-145) mmol/L Potassium 4.0 (3.5-5.1) mmol/L Chloride 105 (98-107) mmol/L Carbon Dioxide 24 (21-32) mmol/L Anion Gap 7 (3-11) BUN 7 (6-23) mg/dl Creatinine 0.70 (0.6-1.2) mg/dl Est Cr Clr Drug Dosing 127.0 ml/min eGFR 113.46 BUN/Creatinine Ratio 10.0 (10-20) Glucose 110 H (70-99(Fasting)) mg/dl Calcium 9.1 (8.6-10.3) mg/dl Total Bilirubin 0.4 (0.2-1.0) mg/dl AST 19 (13-39) U/L ALT 13 (7-52) U/L Alkaline Phosphatase 44 (34-104) U/L Total Protein 7.3 (6.0-8.3) gm/dl Albumin 4.0 (3.4-5.0) gm/dl Globulin 3.3 (2.5-4.0) gm/dl Albumin/Globulin Ratio 1.2 (0.9-2) SARS-CoV-2 (PCR) NEGATIVE (Negative) Influenza Type A (PCR) Negative (Neg) Influenza Type B (PCR) Negative (Neg) RSV (RT-PCR) Negative (Neg) Administered Medications Discontinued Medications Albuterol (Albut/Ipratrop 3mg/0.5mg Neb 3 Ml Vial) 3 ml NEB NOW STA; Protocol Stop: 06/25/25 11:06 Last Admin: 06/25/25 11:58 Dose: 3 ml Documented By: BLD Albuterol (Albut/Ipratrop 3mg/0.5mg Neb 3 Ml Vial) 3 ml NEB NOW STA; Protocol Stop: 06/25/25 13:11 Last Admin: 06/25/25 13:30 Dose: 3 ml Documented By: BLD Albuterol (Albut/Ipratrop 3mg/0.5mg Neb 3 Ml Vial) 3 ml NEB NOW STA; Protocol Stop: 06/25/25 14:48 Last Admin: 06/25/25 16:54 Dose: 3 ml Documented By: jeanna Albuterol (Albut/Ipratrop 3mg/0.5mg Neb 3 Ml Vial) Confirm Administered Dose 3 ml .ROUTE .STK-MED ONE Stop: 06/25/25 16:53 Last Admin: 06/25/25 16:54 Dose: Not Given Documented By: asm Sodium Chloride (Nss) 1,000 mls @ 999 mls/hr IV .Q1H1M ONE Stop: 06/25/25 12:05 Last Infusion: 06/25/25 13:11 Dose: Infused Documented By: Admin: 06/25/25 11:58 Dose: 999 mls/hr Documented By: LINA Methylprednisolone (Methylprednisolone 125 Mg/2 Ml Vial) 125 mg IV NOW STA Stop: 06/25/25 11:06 Last Admin: 06/25/25 11:58 Dose: 125 mg Documented By: LINA Imaging Data Attestation: I personally reviewed and interpreted this imaging study as follows: Radiologist's Impression: Chest X-Ray 06/25/25 10:42 XR chest 1V portable HISTORY: 39 years-old Female Respiratory illness, no prior imaging acute shortness of breath COMPARISON: 03/12/2024 TECHNIQUE: AP view of the chest FINDINGS: Cardiac silhouette is enlarged. Surgical clips project over the right heart border. Mild bilateral hilar prominence is similar to prior. No pneumothorax, pleural effusion or lobar airspace consolidation. Mild left-sided rotator cuff calcific tendinosis. No acute fracture. IMPRESSION: No acute process. ACT 112: Negative or not required by law. The above report was generated using voice recognition software. It may contain grammatical, syntax or spelling errors. Electronically signed by: Vincent Klein M.D. 06/25/2025 12:58 PM Discharge Plan Visit Data Chief Complaint: Shortness of Breath/Dyspnea Stated Complaint: SOB ED Provider: [facility] Midlevel Provider: Kim Murcia Discharge Problem: Asthma with exacerbation, Viral upper respiratory illness Patient Disposition: Admitted As Inpatient Condition: Fair Forms Stand Alone Forms: [employer] [facility] Prescriptions Prescriptions: No Action aspirin 81 mg tablet,delayed release (DR/EC) 81 mg PO DAILY PRN (Reason: NEEDED PER PT) ondansetron 8 mg tablet,disintegrating 8 mg PO Q12H PRN buspirone 7.5 mg tablet 7.5 mg PO BID mecobalamin (vitamin B12) 500 mcg tablet,chewable 500 mcg PO UD multivitamin Tablet 1 tab PO DAILY albuterol sulfate 90 mcg/actuation HFA aerosol inhaler 2 puff inhalation QID PRN (Reason: Wheezing) magnesium 200 mg tablet 200 mg PO DAILY nortriptyline [Pamelor] 25 mg capsule 25 mg PO HS Qty: 30 5RF rizatriptan 10 mg tablet 10 mg PO .COMPLEX PRN (Reason: migraine headache) Qty: 9 5RF Rx Instructions: Take 1 tab at onset of migraine, may repeat after 2 hrs as needed. No more than 2 tabs in 24 hrs. Limit use to 2-3 days per week. cyclobenzaprine 5 mg tablet 5 mg PO BID PRN (Reason: muscle spasm or tension) Qty: 60 5RF budesonide-formoterol [Symbicort] 160-4.5 mcg/actuation HFA aerosol inhaler 2 puff inhalation BID PRN (Reason: Shortness Of Breath Or Wheezing) Referrals Referrals: Mary Lopez MD [Primary Care Provider] -
[2025-06-25] MEDS: ALBUT/IPRATROP 3MG/0.5MG NEB 3 ML VIAL NEB STA ×3 (11:58→16:54)
[2025-06-25] MEDS: SODIUM CHLORIDE 0.9% 1,000 ML IV ONE (11:58)
[2025-06-25 12:17] LABS: Hematocrit (blood only) 44.8 % (37.0-47.0); Hemoglobin 15.7 g/dl (12.0-16.0); Immature Granulocytes # (auto) 0.02 K/uL (0.01-0.20); Immature Granulocytes % (auto) 0.3 %; Mean Corpuscular Hemoglobin 31.7 pg (25.0-34.0); Mean Corpuscular Volume 90.5 fL (80.0-100.0); Platelet Count 240 K/uL (130-400); RDW Standard Deviation 41.8 fL (36.4-46.3); Red Blood Count 4.95 M/uL (4.20-5.40); White Blood Count 7.29 K/ul (4.8-10.8)
[2025-06-25 12:42] LABS: Alanine Aminotransferase 13.0 U/L (7-52); Albumin Globulin Ratio 1.2 (0.9-2); Albumin Level 4.0 gm/dl (3.4-5.0); Alkaline Phosphatase 44.0 U/L (34-104); Anion Gap 7.0 (3-11); Bilirubin,Total 0.4 mg/dl (0.2-1.0); Blood Urea Nitrogen 7.0 mg/dl (6-23); Calcium 9.1 mg/dl (8.6-10.3); Carbon Dioxide 24.0 mmol/L (21-32); Chloride 105.0 mmol/L (98-107); Creatinine Clr Calc Pharmacy 127.0 ml/min; Globulin 3.3 gm/dl (2.5-4.0); Glucose 110.0 mg/dl (70-99(Fasting)); Potassium 4.0 mmol/L (3.5-5.1); Sodium 136.0 mmol/L (136-145); Total Protein 7.3 gm/dl (6.0-8.3)
--- NOTE | 2025-06-25 12:59 | XRay Report ---
XR chest 1V portable HISTORY: 39 years-old Female Respiratory illness, no prior imaging acute shortness of breath COMPARISON: 03/12/2024 TECHNIQUE: AP view of the chest FINDINGS: Cardiac silhouette is enlarged. Surgical clips project over the right heart border. Mild bilateral hi lar prominence is similar to prior. No pneumothorax, pleural effusion or lobar airspace consolidation . Mild left-sided rotator cuff calcific tendinosis. No acute fracture. IMPRESSION: No acute process. ACT 112: Negative or not required by law. The above report was generated using voice recognition software. It may contain grammatical, syntax o r spelling errors. Electronically signed by: Vincent Klein M.D. 06/25/2025 12:58 PM
[2025-06-25 13:08] LABS: Influenza A virus by PCR Negative (Neg); Influenza B virus by PCR Negative (Neg); SARS CoV2 RNA(COVID-19) Ceph NEGATIVE (Negative)
[2025-06-25] MEDS: ALBUT/IPRATROP 3MG/0.5MG NEB 3 ML VIAL ONE (16:54)
--- NOTE | 2025-06-25 17:15 | History & Physical Report ---
Date of Service June 25, 2025 Assessment & Plan (1) Chronic nonallergic rhinitis: (2) Hx of migraines: (3) Asthma: (4) Acute exacerbation of asthma with allergic rhinitis: (5) Acute hypoxic respiratory failure: (6) Cigarette smoker: Plan 39 yo female PMH of Asthma, heavy cigarette smoking, Vertigo, Migraine, NARESH, B12 deficiency, Vit D deficiency, Chronic non allergic rhinitis, Depression with anxiety, ASD presented to ED with h/o sickness for 5 days. On presentation to ED, pt was dyspneic, could not tolerate light walk, Sats dropped to 90. She was given albuterol X3, Methylprednisolone 125 mg IV Stat and responded to treatment. Labs including CMP, CBC, D dimer, COVID, FLU test Unremarkable. Chest Xray and EKG looks unremarkable too. However pt was tachycardic and tachypneic on exam. She is currently being admitted for exacerbation of Asthma and observation #AE of Asthma Presented in acute hypoxic failure, SpO2 as low as 90 * Etio: 2/2 to probable Viral URI and Med non compliance. - Well score < 2, low risk for PE, PE ruled out with normal range D- Dimer. - Endorses increased cough/sputum production - CXR: Unremarkable - COVID, FLu A, Flu B: Neg - CBC, CMP: Unremarkable Plan: Acute plan - PO Prednisone 40 mg q Day x 5 days from tomorrow. - DuoNeb q6hr PRN. - Tessalon pearls fro cough. - Supplemental 02 as needed long-term: - Smoking cessation - Continuity of Symbicort inhaler. #Smoking: - Heavy smoking history - Nicotine patch offered. - Discussed Chantix or Wellbutrin. - Pt has tried trt in past-- defer to outpatient f.u. #Non allergic Rhinitis - Flonase as needed. #Migraine - No active headache now. - Pt Dced use of Triptan d/t side effects in past, Dispo: Admit to med/surg Tele DVT prophylaxis: low risk History of Present Illness Primary Care Provider: Mary Lopez MD 39 yo female PMH of Asthma, heavy cigarette smoking, Vertigo, Migraine, NARESH, B12 deficiency, Vit D deficiency, Chronic non allergic rhinitis, Depression with anxiety, ASD presented to ED with h/o sickness for 5 days. Started having cough since Sunday, it was worse than her chronic baseline cough. Cough is both dry and wet, when it is wet it mucoid in color, no blood, not yellowish. No fever but some chest pain jamie SOB. SOB was gradually worse and she felt she was almost OObreath yesterday when she was walking her dog. She was on Albuterol inhaler at home which she needed 2-3 times initially, increased to need of 3-4 times after sickness. She actually was prescribed Symbicort inhaler by her PCP but has not been able to use that for almost 2 years because insurance won't approve it for her and she has also not been able to follow PCP due to having family issue, says had a lot of thing going with her son. She ans her endorse smoking 1-1.5 pack a day smoking since many years. Pt lives in [place], [place], harvest ongoing now. Also they are working on moving stuffs, some issue in her basement, that could also have worsened her sx. She has tried nicotine gum, patch, Chantix, Wellbutrin in past and nothing has helped for quitting. Finds nicotine toothpaste, may be little helpful. She says she is still trying now as well, has been able to come down to 1 pack now from 1.5 pack before. H/o Migraine which comes and goes, was seeing neurologist before haven't seen for a while now. She was given triptan for breakdown but does not use this, because of side effects. Patient used to take baby aspirin as needed for chest pain. But its on and off. Has not has vertigo lately. Seeing burr grinder for allergy symptoms. Symbicort was prescribed by burr grinder. Wants to establish with PCP, Dr. Mary Lopez was her PCP before but gas not seen her for a while now. After presentation to ED, she fro 3 doses of albuterol nebu, initially saturation was fine but after letting her walk little bit, she was SOB, and was showing some signs of respiratory distress according to ED nurse, Pt felt dyspneic too. Chest xray, EKG, CBC, CMP, D dimer were unremarkable. COVD, Flu A, FLu B tested negative. She got better after initial Nebu treatment as well as steroid. Now being admitted for Observation. Pt also endorse having some GI issue, on and off belly pain in her right and left UQ for years. h/o Appendectomy( 2024) and GB removal( at age of 19). No acute pain now, but using famotidine 20 mg once daily. Allergies Allergy/AdvReac Type Severity Reaction Status Date / Time Penicillins Allergy Intermediate HIVES/RASH, Verified 06/25/25 17:23 VOMITING pollen extracts Allergy Intermediate ITCHY Verified 06/25/25 17:23 EYES, SNEEZING, CONGESTION oxycodone AdvReac Mild Nausea Verified 06/25/25 17:23 Home Medications Medication Instructions Recorded Confirmed Type albuterol sulfate 90 mcg/actuation 2 puff inhalation QID PRN Wheezing 09/03/24 06/25/25 History aerosol inhaler multivitamin 1 tab PO DAILY 09/03/24 06/25/25 History famotidine 20 mg tablet 20 mg PO HS 06/25/25 06/25/25 History Past Med/Surg History Problem List (Updated 06/25/25 @ 17:16 by MERLY Scott) Viral upper respiratory illness (Acute) Asthma with exacerbation (Acute) Cigarette smoker Acute hypoxic respiratory failure Acute exacerbation of asthma with allergic rhinitis History of laparoscopic appendectomy (09/28/24) Laparoscopic Appendectomy(Not Applicable) - Abdon Byrne, Vertiginous migraine Migraine with aura Iron deficiency Vitamin B12 deficiency Vitamin D deficiency Sinusitis Chronic nonallergic rhinitis Pressure sensation in left ear Hx of migraines (Chronic) Vertigo (Chronic) Asthma (Chronic) Depression with anxiety (Chronic) Medical History Acute appendicitis No family history of bleeding disorder No family history of adverse response to anesthesia Lumbar vertebral fracture Surgical History S/P wisdom tooth extraction H/O atrial septal defect repair Hx of cholecystectomy History of tubal ligation Family History Family/Other Stroke Diabetes Alcoholism Father Hypertension Allergies Mother Heart disease Hypertension Allergies Asthma Sinusitis Stroke Cancer Other No family history of adverse response to anesthesia No family history of bleeding disorder Social History Smoking Status: Current every day smoker Tobacco Type: Cigarettes packs per day: 1; Cigarettes Per Day: 1.5 packs a day.; Second Hand Exposure: Yes; Do You Dip or Chew Tobacco: No; Hx Alcohol Use: No Hx Substance Use: No Preferred Language: Palestinian Communication Ability: Effective Farmer General Required: No Beliefs That Will Affect Care: None Current Living Situation: Family Current Living Situation Comment: and Children. Feels Safe at Home: Yes Childhood Exposure to Second-Hand Smoke: No Assistive Devices: None Review of Systems Review of Systems: As per HPI Physical Exam Physical Exam: Constitutional: Well appearing, No acute distress, PILCCOD: Negative HEENT: Atraumatic, Normocephalic, No conjunctival injection CVS: S1 S2 no murmur, Regular Rhythm, TACHYCARDIC, no LE edema Respiratory: BL decreased air entry in lung bases, prolonged Vesicular BS, No obvious rhonchi, wheezes, or crackles on my exam. No increased work of breathin g. Exam was after 3 doses of albuterol nebulization at ED. GI: Soft, Nondistended, Nontender, Normal Bowel sounds + MSK: No gross deformities noted Skin: Warm, Dry, No rashes Neuro: Alert, Oriented to TPP, No Focal deficit Psych: Mood and Affect congruent, Cooperative on exam Results & Data Results & Data Vital Signs (Past 12 Hours) Vital Signs Temp Pulse Pulse Resp Resp BP Pulse Ox 06/25/25 16:25 92 H 06/25/25 15:33 107 H 25 H 139/90 91 06/25/25 15:06 95 H 19 135/87 92 06/25/25 14:36 94 H 24 143/102 H 91 06/25/25 14:23 100 H 18 06/25/25 14:11 91 H 24 162/96 H 93 06/25/25 12:25 96 H 06/25/25 12:11 97 06/25/25 10:39 36.5 C 98 H 20 152/100 H 94 Pulse Ox O2 Del Method 06/25/25 16:25 06/25/25 15:33 Room Air 06/25/25 15:06 06/25/25 14:36 Room Air 06/25/25 14:23 90 Room Air 06/25/25 14:11 06/25/25 12:25 06/25/25 12:11 Room Air 06/25/25 10:39 Room Air Supervising Physician Co-Signing Physician Notes I personally examined the patient and verified diaz points of history and exam, discussed case, and agree with decision making and plan documented by Dr. Han. Patient is a 39-year-old with past medical history pertinent for moderate persistent asthma and tobacco abuse presenting with asthma exacerbation. Chest x-ray negative for acute process. D-dimer wnl. Negative covid/flu/rsv testing. On exam patient appears comfortable, non diaphoretic, conjunctiva clear, mucosa moist, non-labored breathing, lungs with diminished breath sounds bilaterally with faint diffuse wheeze, heart with regular rate and rhythm, bowel sounds present and no tenderness in the abdomen, lower extremities without edema. Dose of methylprednisolone provided in ED, agree with steroids. Patient had improvement of symptoms after albuterol nebulizer. Patient has been without her controller medication (Symbicort 160mcg-4.5 mcg BID) for months due to insurance coverage issues, patient will need assistance getting controller inhaler prior to discharge. Also reviewed efforts to quit smoking, patient and her both are currently smoking 1 pack/day, this is less than previous use, they are contemplative at present, encouraged continued efforts. Resident Activity Tracking Resident Involvement: Resident Care Provided Care Provided: Adult Hospital Medicine
[2025-06-25] MEDS ORDERED: POLYETHYLENE (MIRALAX) 17 GM PACK PO PRN (18:33)
[2025-06-25] MEDS ORDERED: MELATONIN 3 MG TAB PO PRN (18:33)
[2025-06-25] MEDS ORDERED: ALBUT/IPRATROP 3MG/0.5MG NEB 3 ML VIAL NEB PRN (18:33)
[2025-06-25] MEDS ORDERED: ALUMINUM/MAGNESIUM SUSP 30 ML UDC PO PRN (18:33)
[2025-06-25] MEDS ORDERED: ACETAMINOPHEN 325 MG TAB PO PRN (18:33)
[2025-06-25] MEDS: BENZONATATE 100 MG CAPSULE PO SCH (20:02)
[2025-06-25] MEDS: FLUTICASONE PROPIONATE NA SPR 16 GM BTL SCH (20:02)
[2025-06-25] MEDS: FLUTICASONE/VILANTEROL 100/25MCG 14 PUFFS/INHALER INH SCH (20:03)
[2025-06-26 03:57] VITALS: TEMP 97.9
--- NOTE | 2025-06-26 07:06 | Hospitalist Progress Note ---
Date of Service June 26, 2025 Assessment & Plan (1) Chronic nonallergic rhinitis: (2) Hx of migraines: (3) Asthma: (4) Acute exacerbation of asthma with allergic rhinitis: (5) Acute hypoxic respiratory failure: (6) Cigarette smoker: Plan 39 yo female PMH of Asthma, heavy cigarette smoking, Vertigo, Migraine, NARESH, B12 deficiency, Vit D deficiency, Chronic non allergic rhinitis, Depression with anxiety, ASD presented to ED with h/o sickness for 5 days. On presentation to ED, pt was dyspneic, could not tolerate light walk, Sats dropped to 90. She was given albuterol X3, Methylprednisolone 125 mg IV Stat and responded to treatment. Labs including CMP, CBC, D dimer, COVID, FLU test Unremarkable. Chest Xray and EKG looks unremarkable too. However pt was tachycardic and tachypneic on exam. She is currently being admitted for exacerbation of Asthma and observation #AE of Asthma Presented in acute hypoxic failure, SpO2 as low as 90 * Etio: 2/2 to probable Viral URI and Med non compliance. - Well score < 2, low risk for PE, PE ruled out with normal range D- Dimer. - Endorses increased cough/sputum production - CXR: Unremarkable - COVID, FLu A, Flu B: Neg - CBC, CMP: Unremarkable Plan: Acute plan - PO Prednisone 40 mg q Day x 5 days from tomorrow. - DuoNeb q6hr PRN. - Tessalon pearls fro cough. - Supplemental 02 as needed care home: - Smoking cessation - Continuity of Symbicort inhaler. #Smoking: - Heavy smoking history - Nicotine patch offered. - Discussed Chantix or Wellbutrin. - Pt has tried trt in past-- defer to outpatient f.u. #Non allergic Rhinitis - Flonase as needed. #Migraine - No active headache now. - Pt Dced use of Triptan d/t side effects in past, Dispo: Admit to med/surg Tele DVT prophylaxis: low risk Admission and Anticipated Discharge Date Admission Date: June 25, 2025 Review of Systems Review of Systems: As per HPI Physical Exam Physical Exam: Constitutional: Well appearing, No acute distress, PILCCOD: Negative HEENT: Atraumatic, Normocephalic, No conjunctival injection CVS: S1 S2 no murmur, Regular Rhythm, TACHYCARDIC, no LE edema Respiratory: BL decreased air entry in lung bases, prolonged Vesicular BS, No obvious rhonchi, wheezes, or crackles on my exam. No increased work of ramsey athing. Exam was after 3 doses of albuterol nebulization at ED. GI: Soft, Nondistended, Nontender, Normal Bowel sounds + MSK: No gross deformities noted Skin: Warm, Dry, No rashes Neuro: Alert, Oriented to TPP, No Focal deficit Psych: Mood and Affect congruent, Cooperative on exam Results & Data Results & Data Vital Signs (Past 12 Hours) Vital Signs Temp Pulse Pulse Resp BP Pulse Ox O2 Del Method 06/26/25 03:56 36.6 C 92 H 20 145/85 H 95 Room Air 06/26/25 00:51 36.8 C 99 H 20 163/84 H 91 Room Air 06/25/25 22:24 95 H
[2025-06-26] MEDS: predniSONE 20 MG TAB PO SCH (08:01)
[2025-06-26] MEDS: ALBUT/IPRATROP 3MG/0.5MG NEB 3 ML VIAL NEB STA (08:08)
[2025-06-26 11:12] VITALS: BP 148/87; RESP 18; O2SAT 96
[2025-06-26] MEDS: FLUTICASONE/VILANTEROL 200/25MCG 14 PUFFS/INHALER INH SCH (12:47)
[2025-06-26] MEDS: INFLUENZA VACC TS2025-26(6m+)/PF (IIV3) 0.5mL Syr IM ONE (14:29)
[2025-06-26 15:02] VITALS: PULSE 92
--- NOTE | 2025-06-26 15:11 | Discharge Summary ---
Date of Service June 26, 2025 Admission HPI Per Admitting Provider 39 yo female PMH of Asthma, heavy cigarette smoking, Vertigo, Migraine, NARESH, B12 deficiency, Vit D deficiency, Chronic non allergic rhinitis, Depression with anxiety, ASD presented to ED with h/o sickness for 5 days. Started having cough since Sunday, it was worse than her chronic baseline cough. Cough is both dry and wet, when it is wet it mucoid in color, no blood, not yellowish. No fever but some chest pain jamie SOB. SOB was gradually worse and she felt she was almost OObreath yesterday when she was walking her dog. She was on Albuterol inhaler at home which she needed 2-3 times initially, increased to need of 3-4 times after sickness. She actually was prescribed Symbicort inhaler by her PCP but has not been able to use that for almost 2 years because insurance won't approve it for her and she has also not been able to follow PCP due to having family issue, says had a lot of thing going with her son. She ans her endorse smoking 1-1.5 pack a day smoking since many years. Pt lives in [facility], near [place], harvest ongoing now. Also they are working on moving stuffs, some issue in her basement, that could also have worsened her sx. She has tried nicotine gum, patch, Chantix, Wellbutrin in past and nothing has helped for quitting. Finds nicotine toothpaste, may be little helpful. She says she is still trying now as well, has been able to come down to 1 pack now from 1.5 pack before. H/o Migraine which comes and goes, was seeing neurologist before haven't seen for a while now. She was given triptan for breakdown but does not use this, because of side effects. Patient used to take baby aspirin as needed for chest pain. But its on and off. Has not has vertigo lately. Seeing sas etl developer for allergy symptoms. Symbicort was prescribed by sas etl developer. Wants to establish with PCP, Dr. Mary Lopez was her PCP before but gas not seen her for a while now. After presentation to ED, she fro 3 doses of albuterol nebu, initially saturation was fine but after letting her walk little bit, she was SOB, and was showing some signs of respiratory distress according to ED nurse, Pt felt dyspneic too. Chest xray, EKG, CBC, CMP, D dimer were unremarkable. COVD, Flu A, FLu B tested negative. She got better after initial Nebu treatment as well as steroid. Now being admitted for Observation. Pt also endorse having some GI issue, on and off belly pain in her right and left UQ for years. h/o Appendectomy( 2024) and GB removal( at age of 19). No acute pain now, but using famotidine 20 mg once daily. Admission Exam Per Admitting Provider Constitutional: Well appearing, No acute distress, PILCCOD: Negative HEENT: Atraumatic, Normocephalic, No conjunctival injection CVS: S1 S2 no murmur, Regular Rhythm, TACHYCARDIC, no LE edema Respiratory: BL decreased air entry in lung bases, prolonged Vesicular BS, No obvious rhonchi, wheezes, or crackles on my exam. No increased work of breathing. Exam was after 3 doses of albuterol nebulization at ED. GI: Soft, Nondistended, Nontender, Normal Bowel sounds + MSK: No gross deformities noted Skin: Warm, Dry, No rashes Neuro: Alert, Oriented to TPP, No Focal deficit Psych: Mood and Affect congruent, Cooperative on exam Principal Diagnosis Acute exacerbation of asthma Discharge Exam Constitutional: Well appearing, No acute distress, PILCCOD: Negative HEENT: Atraumatic, Normocephalic, No conjunctival injection CVS: S1 S2 no murmur, Regular Rhythm, TACHYCARDIC, no LE edema Respiratory: BL decreased air entry in lung bases, prolonged Vesicular BS, No obvious rhonchi, wheezes, or crackles on my exam. No increased work of breathing. GI: Soft, Nondistended, Nontender, Normal Bowel sounds + MSK: No gross deformities noted Skin: Warm, Dry, No rashes Neuro: Alert, Oriented to TPP, No Focal deficit Psych: Mood and Affect congruent, Cooperative on exam Discharge Data Allergies Allergy/AdvReac Type Severity Reaction Status Date / Time Penicillins Allergy Intermediate HIVES/RASH, Verified 06/25/25 17:23 VOMITING pollen extracts Allergy Intermediate ITCHY Verified 06/25/25 17:23 EYES, SNEEZING, CONGESTION oxycodone AdvReac Mild Nausea Verified 06/25/25 17:23 Consultations 06/25/25 17:13 ED Decision to Admit Stat Hospital Course (1) Chronic nonallergic rhinitis: (2) Hx of migraines: (3) Acute exacerbation of asthma with allergic rhinitis: (4) Acute hypoxic respiratory failure: (5) Cigarette smoker: Plan 39 yo female PMH of Asthma, heavy cigarette smoking, Vertigo, Migraine, NARESH, B12 deficiency, Vit D deficiency, Chronic non allergic rhinitis, Depression with anxiety, ASD presented to ED with h/o sickness for 5 days. On presentation to ED, pt was dyspneic, could not tolerate light walk, Sats dropped to 90. She was given albuterol X3, Methylprednisolone 125 mg IV Stat and responded to treatment. Labs including CMP, CBC, D dimer, COVID, FLU test Unremarkable. Chest Xray and EKG looks unremarkable too. However pt was tachycardic and tachypneic on exam. She was admitted for exacerbation of Asthma and observation. She did not need O2 throughout admission. We are discharging with following recommendation. #AE of Asthma Presented in acute hypoxic failure, SpO2 as low as 90 * Etio: 2/2 to probable Viral URI and Med non compliance. - Well score < 2, low risk for PE, PE ruled out with normal range D- Dimer. - Endorses increased cough/sputum production - CXR: Unremarkable - COVID, FLu A, Flu B: Neg - CBC, CMP: Unremarkable Plan: Acute plan - PO Prednisone 40 mg q Day x 5 days total - Tessalon pearls for cough. halfway: - Smoking cessation - Continuity of Symbicort inhaler. #Smoking: - Heavy smoking history - Nicotine patch offered. - Discussed Chantix or Wellbutrin. - Pt has tried trt in past-- defer to outpatient f.u. #Non allergic Rhinitis - Flonase as needed. #Migraine - No active headache now. - Pt Dced use of Triptan d/t side effects in past, Total Time Total Time Spent Total Time Spent (In Minutes): See attending's attestation Discharge Plan Discharge Items Patient Disposition: Home - Self-Care Reason For Visit: ACUTE EXACERBATION OG ASTHMA Discharge Diagnosis: Acute Exacerbation of Asthma, improved Condition on Discharge: Fair Activity: Resume your previous activity Non-emergency contact: Primary Care Provider and Specialist Call non-emergency contact if: your symptoms worsen Follow-up/Referrals: Mary Lopez MD [Primary Care Provider] - 07/03/25 1:30 pm (THIS APPOINTMENT WILL BE WITH DR JESUS DE LA TORRE IN [facility].) Diet: Regular Addtl Attending Provider Instructions: You were admitted to the hospital for acute exacerbation of asthma, which we do think is because of multifactorial causation like you not using Symbicort inhalers regularly, heavy smoking and ongoing moving stuffs at your home. When you came in, your blood oxygen was low, you were very dyspneic, you could not tolerate walking, hence we admitted you for overnight observation and gave you nebulization therapy along with inhalers similar to that you were prescribed before. We investigated you with blood work, tested you for COVID, Flu, did Chest Xray, everything looks reassuring. And you got better on day of discharge, once you were able to tolerate walking, we recommended discharge for you. A discharge summary will be sent to your primary care physician to ensure continuity of care. Please bring this discharge summary with you to your next office appointment so that your provider can review it at that time. Medications: Your medication list has been reviewed and reconciled upon discharge to ensure accuracy and continuity of care. An updated list of all your medications is included with your hospital discharge paperwork. Please review this list closely and make note of any changes to your medications. 1. Symbicort inhaler 160/4.5 2 inhalations BID to continue. If inhaler won't be covered by your insurance please continue using the one we were giving at hospital. We will follow up at office. 2. Prednisone 40 mg daily for 5 days total( Day 1 on ) 3. Tessalon Perles 100 mg PO TID for 7 days. Follow up appointments: - Make a follow up appointment with your PCP within the next week. It is very important that you follow up with them shortly after discharge from the hospital. - Keep all of your follow up appointments as already scheduled. If you cannot make an appointment, notify your provider. CONTACT YOUR PRIMARY CARE PROVIDER if you experience any of the following: - Difficulty following your treatment plan - Difficulty taking any of your medications CALL 911 OR GO TO THE EMERGENCY DEPARTMENT if you experience any of the following - Sudden, severe abdominal pain or nausea/vomiting - Severe chest pain or chest pain that radiates to your jaw or arm - Sudden, severe shortness of breath or difficulty breathing Pending Studies at Discharge: No Stand-Alone Forms: My [facility] [employer], Smoking Cessation Medications and DC Order Prescriptions: New budesonide-formoterol [Symbicort] 160-4.5 mcg/actuation HFA aerosol inhaler 2 inh inhalation BID Qty: 10.2 0RF prednisone 20 mg tablet 40 mg PO DAILY 4 Days Qty: 8 0RF benzonatate 100 mg capsule 100 mg PO TID Qty: 20 0RF Continued multivitamin Tablet 1 tab PO DAILY albuterol sulfate 90 mcg/actuation HFA aerosol inhaler 2 puff inhalation QID PRN (Reason: Wheezing) famotidine 20 mg tablet 20 mg PO HS Discharge Orders: Discharge Order (Routine); Ordered 06/26/25 Ordered By: Dixie Becerra/Other Patient Handouts: About Your Asthma Action Plan, Acute Severe Asthma Admission Data Admit Date/Time: 06/25/25 16:33 Attending Provider: Jesus Mckee Admit Provider: Dixie Han Primary Care Provider: Mary Lopez Other Providers: Rody Mejia Supervising Physician Co-Signing Physician Notes Attending attestation Pt seen and examined in concert with Dr. Han. In agreement with the documented findings as noted in the resident documentation with any exceptions or additions as noted here. Resting comfortably in bed on room air with significant improvement in presenting symptoms of shortness of breath and cough. VS as noted. On examination, S1/S2 nl RRR no MCG. CTAB. Abd NT/ND BS+ve Acute hypoxic respiratory failure in the setting of asthma exacerbation - complete course of prednisone as noted, continue albuterol and symbicort with close outpatient follow up to ensure appropriate availability. Tobacco use disorder - counseling re: importance of cessation, defers pharmacotherapy at present. Encourage avoidance of other inhaled irritants. Else see resident documentation as noted. Total attending physician time spent with this patient's care on the day of discharge: 32 minutes.
== END 2025-06-26 15:36 | disposition home or self-care (01) ==
LOC: 2W 10:29 → ED 10:29 → SUATTDRO 16:33 → 2W 18:13
DX: Z79.82 Long term (current) use of aspirin; G43.909 Migraine, unspecified, not intractable, without status migrainosus; J45.901 Unspecified asthma with (acute) exacerbation; J96.11 Chronic respiratory failure with hypoxia; Z88.0 Allergy status to penicillin; F41.9 Anxiety disorder, unspecified; D50.9 Iron deficiency anemia, unspecified; R42 Dizziness and giddiness; F17.210 Nicotine dependence, cigarettes, uncomplicated; E53.8 Deficiency of other specified B group vitamins; Z79.51 Long term (current) use of inhaled steroids; Z88.5 Allergy status to narcotic agent